=== PATIENT | female | born 1995 | race Caucasian/White ===

== ENCOUNTER → 2022-11-15 09:38 | Outpatient (BNVA) | payer BC, MEDICAID, SELFPAY | PROVIDERS: PCP Internal Medicine; Visit Provider Physician Assistant Surgical ==

== ENCOUNTER 2022-11-16 08:13 | Outpatient (AMB) | payer BC, MEDICAID, SELFPAY ==
--- OUTSIDE RECORDS SUMMARY | 2022-11-16 08:15 | XMS_ITS | Patient Health Record ---
Author Name Unknown Organization [facility], [facility] Address [address], [place] [id number] Care Team Providers Care Merchandise Handler Name Role Phone PEG CENTENO Primary Care Provider Sonya Severino Unavailable [phone] James Yu Unavailable [phone] Migration, Provider Unavailable Unavailable REASON FOR REFERRAL No Information MEDICATIONS Medication SIG (Take, Route, Frequency, Duration) Notes Start Date End Date Status Flovent HFA 110 MCG/ACT INHALE 2 PUFFS TWICE DAILY DIRECTED Inhalation Twice a day for 90 days Active Qvar RediHaler 80 MCG/ACT 1 puff Inhalation Once a day for 90 days Active Sertraline HCl 50 MG TAKE 1 TABLET BY MOUTH ONCE DAILY. for 90 Active ProAir HFA 108 (90 Base) MCG/ACT Inhale 2 puffs every 4 hrs as needed for wheezing Inhalation ProAir HFA 90 mcg/actuation aerosol inhaler *Reorder from [employer] LS15 for eRx and Interaction Alerts* 10/31/2021 Active SOCIAL HISTORY Sex Assigned At : Social History Observation Description Sex Assigned At Unknown Encounters Encounter Location Date Provider Diagnosis [address] [id number] 11/24/2021 James Yu [facility] [address], [place] [id number] 12/06/[address] [id number] 01/04/[address] [id number] 02/02/[address] [id number] 02/14/2022 Sonya [address] [id number] 03/02/2022 Sonya Severino [facility], [place] [address] [place] [place] [id number] 02/18/2022 Provider Migration [place] [address] [place] [place] [id number] 02/19/2022 Provider Migration [place] [address] [place] [place] [id number] 06/06/2022 Sonya Severino [address] [place] [id number] 06/22/2022 PEG CENTENO PLAN OF TREATMENT Next Appt Details Provider Name:Sonya Severino, 02/15/2023 10:45:00 AM, ELSY ALFONSO [place], [id number], Insurance Providers Payer Name Payer Address Payer Phone Subscriber Number Group Number Insured Name Patient Relationship to Insured Coverage Start Date Coverage End Date [employer] [address] [place] [address] [id number] Piyush Nesbitt Unknown - patient's relationship to the insured is other than any listed [place] [employer] [address] [place] [address] [id number] DIONI NESBITT Self - patient is the insured
--- OUTSIDE RECORDS SUMMARY | 2022-11-16 08:16 | XMS_ITS | Continuity of Care Document ---
Author Name Unknown Organization [facility] Address [address] [place] [address]- Care Team Providers Care Emergency Communications Dispatcher Name Role Phone Not on Staff, PCP Primary Care Physician Unavail able [facility]counter [facility] Date(s): 11/29/21 - 12/29/21 [facility] [address] [place] [id number] Allergies, Adverse Reactions, Alerts Substance Reaction Severity Status doxycycline Active amoxicillin Active penicillins Active Ceftin Active Immunizations Given and Recorded Vaccine Date Status Refusal Reason influenza virus vaccine, inactivated 01/22/20 Give n Measles/Mumps/Rubella Virus Vaccine 07/13/18 Given tetanus/diphtheria/pertussis, acel(Tdap) 05/03/18 Recorded tetanus/diphtheria/pertussis, acel(Tdap) 06/15/17 Recorded Medications aspirin 81 mg oral delayed release tablet 162 mg, 2, tablet, By Mouth, Daily at bedtime, # 60 tablet, Refills 4, Tot. Refills 4, Maintenance,03/14/21 15:54:00 EST, Route to Pharmacy Electronically, [facility]/pharmacy #[id number], Partial fill upon patient request if the prescription is for a schedule II... Start Date: 03/14/21 Status: Ordered MetFORMIN (Eqv-Glucophage XR) 500 mg oral tablet, extended release 1 tablet, By Mouth, 2 times a day, # 180 tablet, 0 Refills, [id number], 160, cm, 08/20/21 18:31:00 EDT, Height, 118.18, kg, 01/19/20 17:02:00 EST, Dry Weight Start Date: 08/30/21 Status: Ordered Multivitamins By Mouth, Daily, 0 Refills, Maintenance, 11/26/20 12:59:00 EDT, Partial fill upon patient request if the prescription is for a schedule II opioid drug. Start Date: 11/26/20 Status: Ordered ProAir HFA 90 mcg/inh inhalation aerosol with adapter 2, puffs, Inhalation, 4 times a day, Refills 0, Maintenance, 09/05/16 18:10:39 Start Date: 09/05/16 Status: Ordered Problem List Condition Confirmation Course Effective Dates Status Health St atus Informant Acne Confirmed Active Asthma Confirmed Active Eczema Confirmed Active Gestational diabetes Confirmed Active Migraine Confirmed Active PCOS (polycystic ovarian syndrome) Confirmed Active Severe obesity Confirmed Active Thyroid nodule Confirmed Active Social History Social History Type Response Smoking Status Never (less than 100 in lifetime) entered on: 05/28/18 Sex Patient Care team information Care Team Personnel Name: Darwin WHIPPLE, Ruthie Dhaliwal Position: [facility] Associate Professional Member Role: Primary Care Nurse Address: Address: [address] [place] [id number] Name: Doreen BABIN, Rosanna Position: [facility] RN Member Role: Primary Care Nurse Name: Not on Staff, PCP Position: [facility] Physician (General Medicine) Member Role: PCP Name: Lonny Meraz RN Position: [facility] RN Member Role: Primary Care Nurse Care Team Related Persons Name: GENO ROSENBERG Address: [address] [place] [address] Name: MARIA C CHAVEZ Address: home [address] [place] [address] Name: LEWIS CHAVEZ Address: [place] Address: home [address] [place] [address] Name: SILVINA CHAVEZ Address: [place] Address: home [address] [place] [address]
--- OUTSIDE RECORDS SUMMARY | 2022-11-16 08:16 | XMS_ITS | Continuity of Care Document ---
Author Name [facility] Address [address] [place] [address]- Care Team Providers Care Mesh Worker Name Role Phone Not on Staff, PCP Primary Care Physician Unavail able Encounter [facility] [id number] Date(s): 10/31/20 - [facility] [address] [place] [address]- [place] Allergies, Adverse Reactions, Alerts Substance Reaction Severity Status doxycycline Active amoxicillin Active penicillins Active Ceftin Active Immunizations Given and Recorded Vaccine Date Status Refusal Reason influenza virus vaccine, inactivated 01/22/20 Give n Measles/Mumps/Rubella Virus Vaccine 07/13/18 Given tetanus/diphtheria/pertussis, acel(Tdap) 05/03/18 Recorded tetanus/diphtheria/pertussis, acel(Tdap) 06/15/17 Recorded Medications letrozole 2.5 mg oral tablet 2 tablets, By Mouth, Daily, beginning on the 3rd day of your cycle., # 10 each, 3 Refills, Maintenance, 11/26/20 13:01:00 EDT, Tablet, [facility], Partial fill upon patient request if the prescription is for a schedule II opioid drug.... Start Date: 11/26/20 Status: Ordered MetFORMIN (Eqv-Glucophage XR) 500 mg oral tablet, extended release 1 tablet = 500 mg, By Mouth, 2 times a day, # 60 tablet, 11 Refills, Maintenance, 08/13/20 14:05:00EDT, ER Tablet, [facility]/pharmacy #[id number], 160.02, cm, 08/13/20 13:47:00 EDT, Height, 118.18, kg, 01/18/2017:02:00 EST, Dry Weight Start Date: 08/13/20 Stop Date: 08/08/21 Status: Ordered Ovidrel 250 mcg/0.5 mL subcutaneous solution = 250 mcg, Subcutaneous Injection, Once, Inject when directed, # 2 each, 3 Refills, Soft Stop, 11/30/20 11:02:00 EDT, Solution, [facility], Partial fill upon patient request if the prescription is for a schedule II opioid drug., 160.02, cm... Start Date: 11/30/20 Status: Ordered Multivitamins By Mouth, Daily, 0 Refills, Maintenance, 11/26/20 12:59:00 EDT, Partial fill upon patient request if the prescription is for a schedule II opioid drug. Start Date: 11/26/20 Status: Ordered ProAir HFA 90 mcg/inh inhalation aerosol with adapter 2, puffs, Inhalation, 4 times a day, Refills 0, Maintenance, 09/05/16 18:10:39 Start Date: 09/05/16 Status: Ordered Provera 10 mg oral tablet 10 mg, 1, tablet, By Mouth, Daily, # 10 tablet, Refills 0, Tot. Refills 0, Maintenance, 11/26/20 13:04:00 EDT, Route to Pharmacy Electronically, [facility], Partial fill upon patientrequest if the prescription is for a schedule II op... Start Date: 11/26/20 Status: Ordered Problem List Condition Effective Dates Status Health Status Inform ant Acne(Confirmed) Active Asthma(Confirmed) Active Chlamydia(Confirmed) 2011 Active Eczema(Confirmed) Active Diabetes, gestational(Confirmed) Active History of depression(Confirmed) Active Migraine(Confirmed) Active PCOS (polycystic ovarian syndrome)(Confirmed) Active Prediabetes insulin resisten ce on Metformin(Confirmed) Active hx frequent Strep throat(Confirmed) Active Thyroid nodule(Confirmed) Active Social History Social History Type Response Smoking Status Never (less than 100 in lifetime) entered on: 05/28/18 Sex Female
--- OUTSIDE RECORDS SUMMARY | 2022-11-16 08:16 | XMS_ITS | Continuity of Care Document ---
Author Name Unknown Organization [facility] Address [address] [place] [address]- Care Team Providers Care Weight Loss Centre Manager Name Role Phone Vikram CHOI, Lonny Osborne Primary Care Physician Encounter [facility] Date(s): 03/14/21 - 04/[facility] [address] [place] [id number] Attending Physician: AdmJennifer saldivar Admitting Physician: Admtr, Jennifer Referring Physician: Admtr, Ar8 Allergies, Adverse Reactions, Alerts Substance Reaction Severity [...] Maintenance,03/14/21 15:54:00 EST, Route to Pharmacy Electronically, [facility]/pharmacy #[id number], Partial fill upon patient request if the prescription is for a schedule II... Start Date: 03/14/21 Status: Ordered MetFORMIN (Eqv-Glucophage XR) 500 mg oral tablet, extended release 1 tablet = 500 mg, By Mouth, 2 times a day, # 60 tablet, 11 Refills, Maintenance, 08/13/20 14:05:00EDT, ER Tablet, [facility]/pharmacy #[id number], 160.02, cm, 08/13/20 13:47:00 EDT, Height, 118.18, kg, 01/18/2017:02:00 EST, Dry Weight Start Date: 08/13/20 Stop Date: 08/08/21 Status: Ordered Multivitamins By Mouth, Daily, 0 Refills, Maintenance, 11/26/20 12:59:00 EDT, Partial fill upon patient request if the prescription is for a schedule II opioid drug. Start Date: 11/26/20 Status: Ordered ProAir HFA 90 mcg/inh inhalation aerosol with adapter 2, puffs, Inhalation, 4 times a day, Refills 0, Maintenance, 09/05/16 18:10:39 Start Date: 09/05/16 Status: Ordered Problem List Condition Effective Dates Status Health Status Inform ant Acne(Confirmed) Active Asthma(Confirmed) Active Eczema(Confirmed) Active Migraine(Confirmed) Active PCOS (polycystic ovarian syndrome)(Confirmed) Active Thyroid nodule(Confirmed) Active Social History Social History Type Response Smoking Status Never (less than 100 in lifetime) entered on: 05/28/18 Sex Female
--- OUTSIDE RECORDS SUMMARY | 2022-11-16 08:16 | XMS_ITS | Continuity of Care Document ---
Author Name Unknown Organization [facility] Address [address] [place] [address]- Care Team Providers Care B2B Sales Executive Name Role Phone Vikram CHOI, Lonny Osborne Primary Care Physician [phone] Encounter [facility] Date(s): 06/29/20 - 07/29/20 [facility] [address] [place], [place] [address] Allergies, Adverse Reactions, Alerts Substance Reaction Severity Status doxycycline Active amoxicillin Active penicillins Active Ceftin Active Immunizations Given and Recorded Vaccine Date Status Refusal Reason influenza virus vaccine, inactivated 01/22/20 Give n Measles/Mumps/Rubella Virus Vaccine 07/13/18 Given Medications MetFORMIN (Eqv-Glucophage XR) 500 mg oral tablet, extended release 1 tablet = 500 mg, By Mouth, Daily, 0 Refills, Maintenance, 01/19/20 3:46:00 EST, Partial fill uponpatient request if the prescription is for a schedule II opioid drug. Start Date: 01/19/20 Status: Ordered ProAir HFA 90 mcg/inh inhalation aerosol with adapter 2, puffs, Inhalation, 4 times a day, Refills 0, Maintenance, 09/05/16 18:10:39 Start Date: 09/05/16 Status: Ordered Zithromax 500 mg oral tablet 2 tablet = 1,000 mg, By Mouth, Once, # 2 tablet, 0 Refills, Soft Stop, 07/26/20 12:23:00 EDT, Tablet, [facility]/pharmacy #[id number], Partial fill upon patient request if the prescription is for a schedule II opioid drug., 160.02, cm, 01/23/20 9:43:00 EST, Height... Start Date: 07/26/20 Status: Ordered Problem List Condition Effective Dates [...]
--- OUTSIDE RECORDS SUMMARY | 2022-11-16 08:16 | XMS_ITS | Continuity of Care Document ---
Author Name Unknown Organization [facility] Address Unknown Care Team Providers Care Manufacturing Design Engineer Name Role Phone Not on Staff, PCP Primary Care Physician Unavail able [place] [facility] [place] 10[place]13[place]20 [place] 11/12/20 [facility] Allergies, Adverse Reactions, Alerts Substance Reaction Severity Status doxycycline Active amoxicillin Active penicillins Active Ceftin Active Immunizations Given and Recorded Vaccine Date Status Refusal Reason influenza virus vaccine, inactivated 01/22/20 Give n Measles/Mumps/Rubella Virus Vaccine 07/13/18 Given tetanus/diphtheria/pertussis, acel(Tdap) 05/03/18 Recorded tetanus/diphtheria/pertussis, acel(Tdap) 06/15/17 Recorded Medications dexamethasone 1 mg oral tablet See Instructions, 1 tablet By Mouth at 11 PM and go for blood test next morning at 8 AM, # 1 each, 0 Refills, Acute 08/14/21 14:07:00 EDT, 08/13/20 14:06:00 EDT, [id number], 160.02, cm, 08/13/20 13:47:00 EDT, Height, 118.18, kg, 01/19/20 17:02... Start Date: 08/13/20 Stop Date: 08/14/21 Status: Ordered MetFORMIN (Eqv-Glucophage XR) 500 mg oral tablet, extended release 1 tablet = 500 mg, By Mouth, 2 times a day, # 60 tablet, 11 Refills, Maintenance, 08/13/20 14:05:00EDT, ER Tablet, [id number], 160.02, cm, 08/13/20 13:47:00 EDT, Height, 118.18, kg, 01/18/2017:02:00 EST, Dry Weight Start Date: 08/13/20 Stop Date: 08/08/21 Status: Ordered ProAir HFA 90 mcg/inh inhalation aerosol with adapter 2, puffs, Inhalation, 4 times a day, Refills 0, Maintenance, 09/05/16 18:10:39 Start Date: 09/05/16 Status: Ordered Zithromax 500 mg oral tablet 2 tablet = 1,000 mg, By Mouth, Once, # 2 tablet, 0 Refills, Soft Stop, 07/26/20 12:23:00 EDT, Tablet, [id number], Partial fill upon patient request if the [...]
--- OUTSIDE RECORDS SUMMARY | 2022-11-16 08:16 | XMS_ITS | Continuity of Care Document ---
Author Name Unknown Organization [facility] Address [address] [place] [address]- Care Team Providers Care Apparel Sales Leader Name Role Phone Not on Staff, PCP Primary Care Physician Unavail able [place] [facility] Date(s): 06/08/20 - 10/28/20 [facility] [address] [place] [address]- Attending Physician: Gael Bruce NP Allergies, Adverse Reactions, Alerts Substance Reaction Severity [...] Acute 08/14/21 14:07:00 EDT, 08/13/20 14:06:00 EDT, [facility]/pharmacy #[id number], 160.02, cm, 08/13/20 13:47:00 EDT, Height, [...] Refills, Soft Stop, 07/26/20 12:23:00 EDT, Tablet, [facility]/pharmacy #[id number], Partial fill upon patient request if the [...]
--- OUTSIDE RECORDS SUMMARY | 2022-11-16 08:16 | XMS_ITS | Continuity of Care Document ---
Author Name Unknown Organization [facility] Address [address] [place] [address]- Care Team Providers Care Software Design Analyst Name Role Phone Not on Staff, PCP Primary Care Physician Unavail able Encounter [facility] Date(s): 08/08/21 - 09/07/21 [facility] [address] [place] [id number] Allergies, Adverse Reactions, Alerts Substance Reaction [...] Maintenance,03/14/21 15:54:00 EST, Route to Pharmacy Electronically, [facility]/pharmacy #[id number], Partial fill upon patient request if the prescription is for a schedule II... Start Date: 03/14/21 Status: Ordered MetFORMIN (Eqv-Glucophage XR) 500 mg oral tablet, extended release 1 tablet, By Mouth, 2 times a day, # 180 tablet, 0 Refills, [facility], 160, cm, 08/20/21 18:31:00 EDT, Height, 118.18, [...] ant Acne(Confirmed) Active Asthma(Confirmed) Active Eczema(Confirmed) Active Gestational diabetes(Confirmed) Active Migraine(Confirmed) Active PCOS (polycystic ovarian syndrome)(Confirmed) Active Severe obesity(Confirmed) Active Thyroid nodule(Confirmed) Active Social History Social History Type Response Smoking Status Never (less than 100 in lifetime) entered on: 05/28/18 Sex Female
--- OUTSIDE RECORDS SUMMARY | 2022-11-16 08:16 | XMS_ITS | Continuity of Care Document ---
Author Name Unknown Organization [facility] Address [address] [place] [address]- Care Team Providers Care Bus Aide Name Role Phone Not on Staff, PCP Primary Care Physician Unavail able Encounter [facility] Date(s): 08/22/21 - 09/21/21 [facility] [address] [place] [id number] Allergies, Adverse Reactions, Alerts Substance Reaction Severity [...] Maintenance,03/14/21 15:54:00 EST, Route to Pharmacy Electronically, [facility]/pharmacy #[id number], Partial fill upon patient request if the prescription is for a schedule II... Start Date: 03/14/21 Status: Ordered MetFORMIN (Eqv-Glucophage XR) 500 mg oral tablet, extended release 1 tablet, By Mouth, 2 times a day, # 180 tablet, 0 Refills, [id number], 160, cm, 08/20/21 18:31:00 EDT, Height, 118.18, [...]
--- OUTSIDE RECORDS SUMMARY | 2022-11-16 08:16 | XMS_ITS | Continuity of Care Document ---
Author Name Unknown Organization [facility] Address Unknown Care Team Providers Care Anesthesia Associate Name Role Phone Vikram CHOI, Lonny Osborne Primary Care Physician Encounter [facility] Date(s): 12/28/20 - 01/27/21 [facility] Allergies, Adverse Reactions, Alerts Substance Reaction Severity Status doxycycline Active amoxicillin Active penicillins Active Ceftin Active Immunizations Given and Recorded Vaccine Date Status Refusal Reason influenza virus vaccine, inactivated 01/22/20 Give n Measles/Mumps/Rubella Virus Vaccine 07/13/18 Given tetanus/diphtheria/pertussis, acel(Tdap) 05/03/18 Recorded tetanus/diphtheria/pertussis, acel(Tdap) 06/15/17 Recorded Medications 27 gauge x 0.5 inch needle 27 gauge x 0.5 inch needle, See Instructions, # 2 each, Refills 3, Tot. Refills 3, Maintenance, Useto administer HCG subcutaneously once, 12/01/20 9:41:00 EDT, Supply, 160.02, cm, 11/26/20 12:57:00 EDT, Height, 118.18, kg, 01/19/20 17:02:00 EST, Dry... Start Date: 12/01/20 Status: Ordered 3 cc 22gauge x 1.5 inch syringe 3 cc 22gauge x 1.5 inch syringe, See Instructions, # 2 each, Refills 3, Tot. Refills 3, Maintenance, Use to mix HCG, 12/01/20 9:41:00 EDT, Supply, 160.02, cm, 11/26/20 12:57:00 EDT, Height, 118.18, kg, 01/19/20 17:02:00 EST, Dry Weight Start Date: 12/01/20 Status: Ordered letrozole 2.5 mg oral tablet 2 tablets, By Mouth, Daily, beginning on the 3rd day of your cycle., # 10 each, 3 Refills, Maintenance, 11/26/20 13:01:00 EDT, Tablet, [facility], Partial fill upon patient request if the prescription is for a schedule II opioid drug.... Start Date: 11/26/20 Status: Ordered MetFORMIN (Eqv-Glucophage XR) 500 mg oral tablet, extended release 1 tablet = 500 mg, By Mouth, 2 times a day, # 60 tablet, 11 Refills, Maintenance, 08/13/20 14:05:00EDT, ER Tablet, [facility]/pharmacy #[id number], 160.02, cm, 08/13/20 13:47:00 EDT, Height, 118.18, kg, 01/18/2017:02:00 EST, Dry Weight Start Date: 08/13/20 Stop Date: 08/08/21 Status: Ordered Ovidrel 250 mcg/0.5 mL subcutaneous solution = 250 mcg, Subcutaneous Injection, Once, Inject when directed, # 2 each, 3 Refills, Soft Stop, 11/30/20 11:02:00 EDT, Solution, [facility], Partial fill upon patient request if the prescription is for a schedule II opioid drug., 160.02, cm... Start Date: 11/30/20 Status: Ordered Pregnyl 98630 u injectable powder for injection See Instructions, 10,000 units subcutaneously Once, # 1 kit, 3 Refills, Maintenance, 12/01/20 9:40:00 EDT, Powder, [facility], Partial fill upon patient request if the prescription is for a schedule II opioid drug., 160.02, cm, ... Start Date: 12/01/20 Status: Ordered Multivitamins By Mouth, Daily, 0 [...] 11/26/20 13:04:00 EDT, Route to Pharmacy Electronically, [facility], Partial fill upon patientrequest if [...]
--- OUTSIDE RECORDS SUMMARY | 2022-11-16 08:16 | XMS_ITS | Continuity of Care Document ---
Author Name Unknown Organization [facility] ter Address [address] [place] [address]- Care Team Providers Care Powder Core Tester Name Role Phone Lebron Corine Hyde DO Primary Care Ruiz martinez Encounter [facility] Date(s): 01/19/20 - 01/23/[address] [address] Discharge Disposition: A-D/C Home Attending Physician: Rafi Swift MD Admitting Physician: Ezequiel Rdz DO Referring Physician: Not on Staff, Referring MD Allergies, Adverse Reactions, Alerts Substance Reaction Severity Status doxycycline Active amoxicillin Active penicillins Active Ceftin Active Immunizations Given and Recorded Vaccine Date Status Refusal Reason influenza virus vaccine, inactivated 01/22/20 Give n Measles/Mumps/Rubella Virus Vaccine 07/13/18 Given Medications dexamethasone 6 mg oral tablet 1 tablet = 6 mg, By Mouth, Daily, for 4 days, # 4 tablet, 0 Refills, Acute 01/27/20 9:56:00 EST, 01/23/20 9:56:00 EST, Tablet, [facility], Partial fill upon patient request if the prescription is for a schedule II opioid drug., 160.02, c... Start Date: 01/23/20 Stop Date: 01/27/20 Status: Ordered MetFORMIN (Eqv-Glucophage XR) 500 mg [...] frequent Strep throat(Confirmed) Active Thyroid nodule(Confirmed) Active Results Radiology Reports * Exam Date Time Procedure Performing Provider Status 01/19/20 3:39 AM Chest Portable Meri Saba; Aut h (Verified) Notes: (Chest Portable) Reason For Exam: Shortness of Breath RESULT: Chest Portable Examination: Portable chest performed on 01/19/2020. History: COVID positive. Nausea and vomiting. Shortness of breath. Findings: A frontal view of the chest is compared to a prior study dated 01/31/2011. The cardiac and mediastinal silhouettes are within normal limits. Low lung volumes are present. There are patchy bilateral predominantly perihilar and lower lobe groundglass opacities. No pleural effusions are seen. The osseous structures are intact. IMPRESSION: Low lung volumes with groundglass opacities bilaterally, consistent with the given diagnosis of covid pneumonia. WSN: [id number] Ordering Physician: Gian Brock Dictated By: Neena Au MD Dictated Date/Time: 01/19/20 8:36 am Reviewed By: Neena Au MD Signed By: Neena Au MD Signed Date/Time: 01/19/20 8:36 am Transcribed By: ELIAS Transcribed Date/Time: 01/19/20 8:35 am Vital Signs Most recent to oldest [Reference Range]: 1 2 3 Height 160.02 cm (01/23/20 9:43 AM) 160.02 cm (01/21/20 3:12 PM) 160.02 cm (01/21/20 11:25 AM) Weight 118.18 kg (01/19/20 10:42 AM) Oxygen Saturation [94-100 %] 94 % (01/23/20 9:43 AM) 94 % (01/23/20 4:00 AM) 99 % (01/23/20 3:00 AM) Pulse Rate [55-90 bpm] 93 bpm *H* (01/23/20 9:43 AM) 116 bpm *H* (01/19/20 4:00 PM) 103 bpm *H* (01/19/20 10:42 AM) Body Mass Index [18.5-24.99] 46.15 *>HHI* (01/19/20 10:42 AM) Blood Pressure [90-138/55-84 mm Hg] 110/70mm Hg (01/23/20 9:43 AM) 106/63mm Hg (01/23/20 4:00 AM) 106/63mm Hg (01/23/20 3:00 AM) Respiratory Rate [16-30 br/min] 20 br/min (01/23/20 9:43 AM) 16 br/min (01/22/20 11:00 PM) 22 br/min (01/22/20 7:00 PM) Temperature [96.8-100.4 DegF] 98.4 DegF (01/23/20 9:00 AM) 98.0 DegF (01/23/20 3:00 AM) 98.2 DegF (01/22/20 11:00 PM) Liters per Minute 2 L/min (01/21/20 4:00 AM) 2 L/min (01/21/20 12:00 AM) 2 L/min (01/20/20 6:00 PM) Mode of Delivery (Oxygen) Room air (01/23/20 9:43 AM) Room air (01/22/20 1:00 PM) Room air (01/22/20 4:00 AM) Blood pressure sites Arm, left (01/23/20 9:43 AM) Arm, left (01/19/20 10:42 AM) Arm, left (01/19/20 6:21 AM) Temperature Route Oral (01/23/20 9:00 AM) Oral (01/23/20 3:00 AM) Oral (01/22/20 11:00 PM) Dry Weight 118.18 kg (01/19/20 10:42 AM) Social History Social History Type Response Smoking Status Never (less than 100 in lifetime) entered on: 05/28/18 Sex
--- OUTSIDE RECORDS SUMMARY | 2022-11-16 08:16 | XMS_ITS | Continuity of Care Document ---
Author Name Unknown Organization [facility] Medicine Address [address] [facility], 4t [address] [place] [address]- Care Team Providers Care Strip Cutter Name Role Phone Vikram CHOI, Lonny Osborne Primary Care Physician Encounter [facility] Date(s): 07/22/20 - 08/21/20 [facility] [address] [facility], 4th [address] [place] [id number] Allergies, Adverse Reactions, Alerts Substance Reaction Severity Status doxycycline Active amoxicillin Active penicillins Active Ceftin Active Immunizations Given and Recorded Vaccine Date Status Refusal Reason influenza virus vaccine, inactivated 01/22/20 Give n Measles/Mumps/Rubella Virus Vaccine 07/13/18 Given Medications dexamethasone 1 mg oral tablet See [...] Refills, Soft Stop, 07/26/20 12:23:00 EDT, Tablet, [facility]/pharmacy #[id number], Partial fill upon patient request if the [...]
--- OUTSIDE RECORDS SUMMARY | 2022-11-16 08:16 | XMS_ITS | Continuity of Care Document ---
Author Name Unknown Organization [facility] ter Address [address] [place] [address]- Care Team Providers Care Pluck Trimmer Name Role Phone Jose Manuel WHIPPLE, Cindi Kang Primary Care Physician [place] [facility] [place] [facility] [place] 08/16/22 - 09/25/[address] [address] Attending Physician: Denise Armando MD Referring Physician: Denise Armando MD Allergies, Adverse Reactions, Alerts Substance Reaction Severity Status doxycycline Active amoxicillin Active penicillins Active Ceftin Active Immunizations Given and Recorded Vaccine Date Status Refusal Reason influenza virus vaccine, inactivated 01/22/20 Give n Measles/Mumps/Rubella Virus Vaccine 07/13/18 Given tetanus/diphtheria/pertussis, acel(Tdap) 05/03/18 Recorded tetanus/diphtheria/pertussis, acel(Tdap) 06/15/17 Recorded Medications MetFORMIN (Eqv-Glucophage XR) 500 mg oral tablet, extended release 1 tablet, By Mouth, 2 times a day, # 180 tablet, 0 Refills, [id number], 160, cm, 08/20/21 18:31:00 EDT, Height, 118.18, [...] 09/05/16 18:10:39 Start Date: 09/05/16 Status: Ordered sertraline 50 mg oral tablet 1 tablet = 50 mg, By Mouth, Daily, 0 Refills, Maintenance, 08/14/22 12:34:00 EDT, Partial fill uponpatient request if the prescription is for a schedule II opioid drug. Start Date: 08/14/22 Status: Ordered Problem List Condition Confirmation Course [...] Personnel Name: Darwin WHIPPLE, Ruthie Dhaliwal Position: [facility] Associate Professional Member Role: Primary Care Nurse Address: Address: [address] [place] [address]- Name: Jose Manuel WHIPPLE, Cindi Kang Position: [facility] Outreach Member Role: PCP Address: Address: [address] [place] [address]- Name: Rosanna Logan RN Position: [facility] RN Member Role: Primary Care Nurse Name: Lonny Meraz RN Position: [facility] RN Member Role: Primary Care Nurse Care Team Related Persons Name: GENO ROSENBERG Address: home [address] [place] [id number] Name: MARIA C CHAVEZ Address: home [address], [place] Name: YRIS CHAVEZ [facility] Address: home [address] [place] Name: LEWIS CHAVEZ Address: [employer] Address: home [address] [place] Name: SILVINA CHAVEZ Address: [employer] Address: home [address]
--- OUTSIDE RECORDS SUMMARY | 2022-11-16 08:16 | XMS_ITS | Continuity of Care Document ---
Author Name Unknown Organization [facility] Address [address] [place] [address]- Care Team Providers Care Seasonal Driver Name Role Phone Vikram CHOI, Lonny Osborne Primary Care Physician [phone] Encounter [facility] Date(s): 12/31/20 - 01/30/21 [facility] [address] [place] [address]- Attending Physician: Admtr, Jennifer Admitting Physician: Admtr, Ar8 Referring Physician: Admtr, Ar8 Allergies, Adverse Reactions, [...] 3 Refills, Maintenance, 11/26/20 13:01:00 EDT, Tablet, [facility], Partial fill upon patient request if the prescription is for a schedule II opioid drug.... Start Date: 11/26/20 Status: Ordered MetFORMIN (Eqv-Glucophage XR) 500 mg oral tablet, extended release 1 tablet = 500 mg, By Mouth, 2 times a day, # 60 tablet, 11 Refills, Maintenance, 08/13/20 14:05:00EDT, ER Tablet, [facility]/pharmacy #[id number], 160.02, cm, 08/13/20 13:47:00 EDT, Height, 118.18, kg, 01/18/2017:02:00 EST, Dry Weight Start Date: 08/13/20 Stop Date: 08/08/21 Status: Ordered Ovidrel 250 mcg/0.5 mL subcutaneous solution = 250 mcg, Subcutaneous Injection, Once, Inject when directed, # 2 each, 3 Refills, Soft Stop, 11/30/20 11:02:00 EDT, Solution, [facility], Partial fill upon patient request if the prescription is for a schedule II opioid drug., 160.02, cm... Start Date: 11/30/20 Status: Ordered Pregnyl 64961 u injectable powder for injection See Instructions, 10,000 units subcutaneously Once, # 1 kit, 3 Refills, Maintenance, 12/01/20 9:40:00 EDT, Powder, [facility], Partial fill upon patient request [...] 11/26/20 13:04:00 EDT, Route to Pharmacy Electronically, [facility], Partial fill upon patientrequest if [...]
--- OUTSIDE RECORDS SUMMARY | 2022-11-16 08:16 | XMS_ITS | Continuity of Care Document ---
Author Name Unknown Organization [facility] Address [address] [place] [address]- Care Team Providers Care Yarn Sorter Name Role Phone Not on Staff, PCP Primary Care Physician Unavail able Encounter [facility] Date(s): 09/22/21 - 10/22/[facility] [address] [place] [id number] Attending Physician: Jennifer Amezcua Admitting Physician: AdmJennifer saldivar Referring Physician: Admtr Ar8 Allergies, Adverse Reactions, Alerts Substance Reaction Severity Status doxycycline Active amoxicillin Active Ceftin Active penicillins Active Immunizations Given and Recorded Vaccine Date Status Refusal Reason influenza virus vaccine, inactivated 01/22/20 Give n Measles/Mumps/Rubella Virus Vaccine 07/13/18 Given tetanus/diphtheria/pertussis, acel(Tdap) 05/03/18 Recorded tetanus/diphtheria/pertussis, acel(Tdap) 06/15/17 Recorded Medications aspirin 81 mg oral delayed release tablet 162 mg, 2, tablet, By Mouth, Daily at bedtime, # 60 tablet, Refills 4, Tot. Refills 4, Maintenance,03/14/21 15:54:00 EST, Route to Pharmacy Electronically, [facility]/pharmacy #[id number], Partial fill upon patient request if the prescription is for a schedule II... Start Date: 03/14/21 Status: Ordered MetFORMIN (Eqv-Glucophage XR) 500 mg oral tablet, extended release 1 tablet, By Mouth, 2 times a day, # 180 tablet, 0 Refills, [facility] [id number], 160, cm, 08/20/21 18:31:00 EDT, Height, 118.18, [...] 100 in lifetime) entered on: 05/28/18 Sex Care Team Personnel Name: Not on Staff, PCP
--- OUTSIDE RECORDS SUMMARY | 2022-11-16 08:16 | XMS_ITS | Continuity of Care Document ---
Author Name Unknown Organization [facility] Address Unknown Care Team Providers Care Exchange Mechanic Name Role Phone Not on Staff, PCP Primary Care Physician Unavail able [place] [facility] Date(s): 10/21/20 - 11/20/20 [facility] Allergies, Adverse Reactions, Alerts [...] Soft Stop, 07/26/20 12:23:00 EDT, Tablet, [id number], Partial fill upon patient request if the [...]
--- OUTSIDE RECORDS SUMMARY | 2022-11-16 08:16 | XMS_ITS | Continuity of Care Document ---
Author Name Unknown Organization [facility] Address Unknown Care Team Providers Care Cyber Incident Responder Name Role Phone Not on Staff, PCP Primary Care Physician Unavail able Encounter [facility] Date(s): 12/07/20 - 12/14/20 [facility] Attending Physician: Not on Staff, Attending MD Referring Physician: Sosa Rivas MD Allergies, Adverse Reactions, Alerts Substance Reaction [...] 3 Refills, Maintenance, 11/26/20 13:01:00 EDT, Tablet, [facility], Partial fill upon patient request if the prescription is for a schedule II opioid drug.... Start Date: 11/26/20 Status: Ordered MetFORMIN (Eqv-Glucophage XR) 500 mg oral tablet, extended release 1 tablet = 500 mg, By Mouth, 2 times a day, # 60 tablet, 11 Refills, Maintenance, 08/13/20 14:05:00EDT, ER Tablet, [facility]/pharmacy #[id number], 160.02, cm, 08/13/20 13:47:00 EDT, Height, 118.18, kg, 01/18/2017:02:00 EST, Dry Weight Start Date: 08/13/20 Stop Date: 08/08/21 Status: Ordered Ovidrel 250 mcg/0.5 mL subcutaneous solution = 250 mcg, Subcutaneous Injection, Once, Inject when directed, # 2 each, 3 Refills, Soft Stop, 11/30/20 11:02:00 EDT, Solution, [facility], Partial fill upon patient request if the prescription is for a schedule II opioid drug., 160.02, cm... Start Date: 11/30/20 Status: Ordered Pregnyl 55964 u injectable powder for injection See Instructions, 10,000 units subcutaneously Once, # 1 kit, 3 Refills, Maintenance, 12/01/20 9:40:00 EDT, Powder, [facility], Partial fill upon patient [...] 11/26/20 13:04:00 EDT, Route to Pharmacy Electronically, [facility], Partial fill upon patientrequest [...]
--- OUTSIDE RECORDS SUMMARY | 2022-11-16 08:16 | XMS_ITS | Continuity of Care Document ---
Author Name Unknown Organization [facility] Address [address] [facility], 4[address] [place] [address]- Care Team Providers Care Apple Turner Name Role Phone Vikram CHOI, Lonny Osborne Primary Care Physician [phone] Encounter [facility] Date(s): 07/19/20 - 08/18/20 [facility] [address] [facility], 4th [address] [place] [id number] Allergies, Adverse Reactions, Alerts [...] Soft Stop, 07/26/20 12:23:00 EDT, Tablet, [facility]/pharmacy #[id number], Partial fill upon patient request if the [...]
--- OUTSIDE RECORDS SUMMARY | 2022-11-16 08:16 | XMS_ITS | Continuity of Care Document ---
Author Name Unknown Organization [facility] Address Unknown Care Team Providers Care President [employer] Name Role Phone Not on Staff, PCP Primary Care Physician Unavail able Encounter [facility] Date(s): 01/11/21 - 01/18/21 [facility] Attending Physician: Not on [...] 3 Refills, Maintenance, 11/26/20 13:01:00 EDT, Tablet, [facility], Partial fill upon patient request if the prescription is for a schedule II opioid drug.... Start Date: 11/26/20 Status: Ordered MetFORMIN (Eqv-Glucophage XR) 500 mg oral tablet, extended release 1 tablet = 500 mg, By Mouth, 2 times a day, # 60 tablet, 11 Refills, Maintenance, 08/13/20 14:05:00EDT, ER Tablet, [facility]/pharmacy #[id number], 160.02, cm, 08/13/20 13:47:00 EDT, Height, 118.18, kg, 01/18/2017:02:00 EST, Dry Weight Start Date: 08/13/20 Stop Date: 08/08/21 Status: Ordered Ovidrel 250 mcg/0.5 mL subcutaneous solution = 250 mcg, Subcutaneous Injection, Once, Inject when directed, # 2 each, 3 Refills, Soft Stop, 11/30/20 11:02:00 EDT, Solution, [facility], Partial fill upon patient request if the prescription is for a schedule II opioid drug., 160.02, cm... Start Date: 11/30/20 Status: Ordered Pregnyl 54486 u injectable powder for injection See Instructions, 10,000 units subcutaneously Once, # 1 kit, 3 Refills, Maintenance, 12/01/20 9:40:00 EDT, Powder, [facility], Partial fill upon patient [...] 11/26/20 13:04:00 EDT, Route to Pharmacy Electronically, [facility], Partial fill upon patientrequest [...]
--- OUTSIDE RECORDS SUMMARY | 2022-11-16 08:16 | XMS_ITS | Continuity of Care Document ---
Author Name Unknown Organization [facility] Address [address] [place] [address]- Care Team Providers Care Set Up Mechanic Coil Winding Machines Name Role Phone Vikram CHOI, Lonny Osborne Primary Care Physician [phone] Encounter [facility] Date(s): 06/24/21 - 07/24/21 [facility] [address] [place] [id number] Allergies, Adverse Reactions, Alerts Substance [...] Maintenance,03/14/21 15:54:00 EST, Route to Pharmacy Electronically, [facility]/pharmacy #[id number], Partial fill upon patient request if the prescription is for a schedule II... Start Date: 03/14/21 Status: Ordered MetFORMIN (Eqv-Glucophage XR) 500 mg oral tablet, extended release 1 tablet = 500 mg, By Mouth, 2 times a day, # 60 tablet, 11 Refills, Maintenance, 08/13/20 14:05:00EDT, ER Tablet, [facility]/pharmacy #[id number], 160.02, cm, 08/13/20 13:47:00 EDT, Height, [...]
--- OUTSIDE RECORDS SUMMARY | 2022-11-16 08:16 | XMS_ITS | Continuity of Care Document ---
Author Name Unknown Organization [facility] Address [address] [place] [address]- Care Team Providers Care Primary Care Coordinator Name Role Phone Vikram CHOI, Lonny Osborne Primary Care Physician [phone] Encounter [facility] [place] Date(s): 07/12/21 - 08/11/21 [facility] [address] [place] [id number] Allergies, Adverse Reactions, Alerts Substance Reaction [...] Maintenance,03/14/21 15:54:00 EST, Route to Pharmacy Electronically, [facility]/pharmacy #[id number], Partial fill upon patient request if the prescription is for a schedule II... Start Date: 03/14/21 Status: Ordered MetFORMIN (Eqv-Glucophage XR) 500 mg oral tablet, extended release 1 tablet = 500 mg, By Mouth, 2 times a day, # 60 tablet, 11 Refills, Maintenance, 08/13/20 14:05:00EDT, ER Tablet, [facility]/pharmacy #[id number], 160.02, cm, 08/13/20 13:47:00 EDT, Height, 118.18, kg, 01/18/2017:02:00 EST, Dry Weight Start Date: 08/13/20 Stop Date: 08/08/21 Status: Ordered metFORMIN 500 mg oral tablet See Instructions, One tablet by mouth with breakfast, one tablet with lunch, and one tablet with afternoon snack, # 90 tablet, 1 Refills, Maintenance, 07/25/21 9:45:00 EDT, Partial fill upon patient request if the prescription is for a schedule II opi... Start Date: 07/25/21 Status: Ordered Multivitamins By Mouth, Daily, 0 [...]
--- OUTSIDE RECORDS SUMMARY | 2022-11-16 08:16 | XMS_ITS | Continuity of Care Document ---
Author Name Unknown Organization [facility] Address [address] [place] [address]- Care Team Providers Care Drawer In Dobby Loom Name Role Phone Vikram CHOI, Lonny Osborne Primary Care Physician [phone] [facility] Date(s): 07/18/21 - 08/17/21 [facility] [address] [place] [id number] Attending Physician: Jennifer Amezcua Admitting Physician: Admtr, Jennifer Referring Physician: Admtr, [...] Maintenance,03/14/21 15:54:00 EST, Route to Pharmacy Electronically, [facility]/pharmacy #[id number], Partial fill upon patient request if the prescription is for a schedule II... Start Date: 03/14/21 Status: Ordered MetFORMIN (Eqv-Glucophage XR) 500 mg oral tablet, extended release 1 tablet = 500 mg, By Mouth, 2 times a day, # 60 tablet, 11 Refills, Maintenance, 08/13/20 14:05:00EDT, ER Tablet, [facility]/pharmacy #[id number], 160.02, cm, 08/13/20 13:47:00 EDT, [...]
--- OUTSIDE RECORDS SUMMARY | 2022-11-16 08:16 | XMS_ITS | Continuity of Care Document ---
Author Name Unknown Organization [facility] ter Address [address] [place] [address]- Care Team Providers Care Maid Supervisor Name Role Phone Vikram CHOI, Lonny Osborne Primary Care Physician [facility] Date(s): 08/01/21 - 08/31/[address] [address] Allergies, Adverse Reactions, Alerts Substance [...] Maintenance,03/14/21 15:54:00 EST, Route to Pharmacy Electronically, [facility]/pharmacy #[id number], Partial fill upon patient request if the prescription is for a schedule II... Start Date: 03/14/21 Status: Ordered MetFORMIN (Eqv-Glucophage XR) 500 mg oral tablet, extended release 1 tablet, By Mouth, 2 times a day, # 180 tablet, 0 Refills, [facility], 160, cm, 08/20/21 18:31:00 EDT, Height, 118.18, [...] Asthma(Confirmed) Active Eczema(Confirmed) Active Gestational diabetes(Confirmed) Active Gestational diabetes mellitu s, class A>2<(Confirmed) 1 08/20/21 Active H/O: depression(Confirmed) 2 08/20/21 Active Migraine(Confirmed) Active PCOS (polycystic ovarian syndrome)(Confirmed) Active Thyroid nodule(Confirmed) Active 1Problem added by Discern Expert 2Problem added by Discern Expert Social History Social History Type Response Smoking Status Never (less than 100 in lifetime) entered on: 05/28/18 Sex Female
--- OUTSIDE RECORDS SUMMARY | 2022-11-16 08:16 | XMS_ITS | Continuity of Care Document ---
Author Name Unknown Organization [facility] Address [address] [place] [address]- Care Team Providers Care Compensation Specialist Name Role Phone Not on Staff, PCP Primary Care Physician Unavail able [facility]counter [facility] Date(s): 10/30/20 - 11/29/20 [facility] [address] [place] [address]- Allergies, Adverse Reactions, Alerts Substance Reaction Severity [...] 3 Refills, Maintenance, 11/26/20 13:01:00 EDT, Tablet, [facility], Partial fill upon patient request if the prescription is for a schedule II opioid drug.... Start Date: 11/26/20 Status: Ordered MetFORMIN (Eqv-Glucophage XR) 500 mg oral tablet, extended release 1 tablet = 500 mg, By Mouth, 2 times a day, # 60 tablet, 11 Refills, Maintenance, 08/13/20 14:05:00EDT, ER Tablet, [facility]/pharmacy #[id number], 160.02, cm, 08/13/20 13:47:00 EDT, Height, 118.18, kg, 01/18/2017:02:00 EST, Dry Weight Start Date: 08/13/20 Stop Date: 08/08/21 Status: Ordered Ovidrel 250 mcg/0.5 mL subcutaneous solution = 250 mcg, Subcutaneous Injection, Once, Inject once per cycle when directed, # 2 each, 3 Refills, Soft Stop, 11/26/20 13:02:00 EDT, Solution, [facility], Partial fill upon patient request if the prescription is for a schedule II opio... Start Date: 11/26/20 Status: Ordered Multivitamins By Mouth, Daily, 0 [...] 11/26/20 13:04:00 EDT, Route to Pharmacy Electronically, [facility], Partial fill upon patientrequest [...]
--- OUTSIDE RECORDS SUMMARY | 2022-11-16 08:16 | XMS_ITS | Continuity of Care Document ---
Author Name Unknown Organization [facility] Address [address] [place] [address]- Care Team Providers Care Veterinarian Helper Name Role Phone Vikram CHOI, Lonny Osborne Primary Care Physician [place] [facility] [place](s): 04/06/21 - 05/06/21 [facility] [address] [place] [id number] Allergies, Adverse Reactions, Alerts Substance [...] Maintenance,03/14/21 15:54:00 EST, Route to Pharmacy Electronically, [facility]/pharmacy #[id number], Partial fill upon patient request if the prescription is for a schedule II... Start Date: 03/14/21 Status: Ordered MetFORMIN (Eqv-Glucophage XR) 500 mg oral tablet, extended release 1 tablet = 500 mg, By Mouth, 2 times a day, # 60 tablet, 11 Refills, Maintenance, 08/13/20 14:05:00EDT, ER Tablet, [facility]/pharmacy #[id number], 160.02, cm, 08/13/20 [...]
--- OUTSIDE RECORDS SUMMARY | 2022-11-16 08:16 | XMS_ITS | Continuity of Care Document ---
Author Name Unknown Organization [facility] e Medicine Address Unknown Care Team Providers Care Clerical Warehouse Worker Name Role Phone Not on Staff, PCP Primary Care Physician Unavail able [facility]counter [facility] Date(s): 11/26/20 - 12/03/20 [facility] Attending Physician: Sosa Rivas MD Allergies, Adverse Reactions, [...] 3 Refills, Maintenance, 11/26/20 13:01:00 EDT, Tablet, [facility], Partial fill upon patient request if the prescription is for a schedule II opioid drug.... Start Date: 11/26/20 Status: Ordered MetFORMIN (Eqv-Glucophage XR) 500 mg oral tablet, extended release 1 tablet = 500 mg, By Mouth, 2 times a day, # 60 tablet, 11 Refills, Maintenance, 08/13/20 14:05:00EDT, ER Tablet, [facility]/pharmacy #[id number], 160.02, cm, 08/13/20 13:47:00 EDT, Height, 118.18, kg, 01/18/2017:02:00 EST, Dry Weight Start Date: 08/13/20 Stop Date: 08/08/21 Status: Ordered Ovidrel 250 mcg/0.5 mL subcutaneous solution = 250 mcg, Subcutaneous Injection, Once, Inject when directed, # 2 each, 3 Refills, Soft Stop, 11/30/20 11:02:00 EDT, Solution, [facility], Partial fill upon patient request if the prescription is for a schedule II opioid drug., 160.02, cm... Start Date: 11/30/20 Status: Ordered Pregnyl 80022 u injectable powder for injection See Instructions, 10,000 units subcutaneously Once, # 1 kit, 3 Refills, Maintenance, 12/01/20 9:40:00 EDT, Powder, [facility], Partial fill upon patient [...] 11/26/20 13:04:00 EDT, Route to Pharmacy Electronically, [facility], Partial fill upon patientrequest [...] frequent Strep throat(Confirmed) Active Thyroid nodule(Confirmed) Active Vital Signs Most recent to oldest [Reference Range]: 1 Height 160.02 cm (11/26/20 11:00 AM) Weight 116.7 kg (11/26/20 11:00 AM) Pulse Rate [55-90 bpm] 109 bpm *H* (11/26/20 11:00 AM) Body Mass Index [18.5-24.99] 45.57 *>HHI* (11/26/20 11:00 AM) Blood Pressure [90-138/55-84 mm Hg] 128/ 69mm Hg (11/26/20 11:00 AM) Blood pressure sites Arm, right (11/26/20 11:00 AM) Weight Obtained Via Standing scale (11/26/20 11:00 AM) Social History Social History Type Response Smoking Status Never (less than 100 in lifetime) entered on: 05/28/18 Sex Female
--- OUTSIDE RECORDS SUMMARY | 2022-11-16 08:17 | XMS_ITS | Continuity of Care Document ---
Author Name Unknown Organization [facility] Medicine Address [address] [place] [address]- Care Team Providers Care Broth Mixer Name Role Phone Vikram CHOI, Lonny Osborne Primary Care Physician Encounter [facility] Date(s): 07/26/20 - 08/25/20 [facility] [address] [place] [id number]- Attending Physician: AdmJennifer saldivar Admitting Physician: AdmtrJennifer Referring Physician: Admtr, [id number] Allergies, Adverse Reactions, [...] Soft Stop, 07/26/20 12:23:00 EDT, Tablet, [id number], Partial fill upon patient request if the [...]
--- OUTSIDE RECORDS SUMMARY | 2022-11-16 08:17 | XMS_ITS | Continuity of Care Document ---
Author Name Unknown Organization [facility] Address [address] [place] [id number]- Care Team Providers Care Certified Nurse Operating Room Name Role Phone Vikram CHOI, Lonny Osborne Primary Care Physician [facility]counter [facility] Date(s): 06/20/21 - 07/20/21 [facility] [address] [place] [id number] Allergies, Adverse Reactions, Alerts Substance [...] Maintenance,03/14/21 15:54:00 EST, Route to Pharmacy Electronically, [facility]/pharmacy #[id number], Partial fill upon patient request if the prescription is for a schedule II... Start Date: 03/14/21 Status: Ordered MetFORMIN (Eqv-Glucophage XR) 500 mg oral tablet, extended release 1 tablet = 500 mg, By Mouth, 2 times a day, # 60 tablet, 11 Refills, Maintenance, 08/13/20 14:05:00EDT, ER Tablet, [facility]/pharmacy #[id number], 160.02, cm, 08/13/20 13:47:00 EDT, [...]
--- OUTSIDE RECORDS SUMMARY | 2022-11-16 08:17 | XMS_ITS | Continuity of Care Document ---
Author Name Unknown Organization [facility] Address [address] [place] [address]- Care Team Providers Care Bus Driver Name Role Phone Vikram CHOI, Lonny Osborne Primary Care Physician En[facility] Date(s): 10/31/20 [facility] [address] [place] [address]- Attending Physician: Not on Staff, Attending MD Referring Physician: Cristiano WHIPPLE, Paola Mooney Allergies, Adverse Reactions, Alerts Substance Reaction Severity [...] 3 Refills, Maintenance, 11/26/20 13:01:00 EDT, Tablet, [facility], Partial fill upon patient request if the prescription is for a schedule II opioid drug.... Start Date: 11/26/20 Status: Ordered MetFORMIN (Eqv-Glucophage XR) 500 mg oral tablet, extended release 1 tablet = 500 mg, By Mouth, 2 times a day, # 60 tablet, 11 Refills, Maintenance, 08/13/20 14:05:00EDT, ER Tablet, [facility]/pharmacy #[id number], 160.02, cm, 08/13/20 13:47:00 EDT, Height, 118.18, kg, 01/18/2017:02:00 EST, Dry Weight Start Date: 08/13/20 Stop Date: 08/08/21 Status: Ordered Ovidrel 250 mcg/0.5 mL subcutaneous solution = 250 mcg, Subcutaneous Injection, Once, Inject when directed, # 2 each, 3 Refills, Soft Stop, 11/30/20 11:02:00 EDT, Solution, [facility], Partial fill upon patient request if the prescription is for a schedule II opioid drug., 160.02, cm... Start Date: 11/30/20 Status: Ordered Pregnyl 31100 u injectable powder for injection See Instructions, 10,000 units subcutaneously Once, # 1 kit, 3 Refills, Maintenance, 12/01/20 9:40:00 EDT, Powder, [facility], Partial fill upon patient [...] 4 times a day, Refills 0, Maintenance, 07/25/17 18:10:39 Start Date: 09/05/16 Status: Ordered Provera 10 mg oral tablet 10 mg, 1, tablet, By Mouth, Daily, # 10 tablet, Refills 0, Tot. Refills 0, Maintenance, 11/26/20 13:04:00 EDT, Route to Pharmacy Electronically, [facility], Partial fill upon patientrequest [...]
--- OUTSIDE RECORDS SUMMARY | 2022-11-16 08:17 | XMS_ITS | Continuity of Care Document ---
Author Name Unknown Organization [facility] e Medicine Address Unknown Care Team Providers Care Glaze Sprayer Name Role Phone Not on Staff, PCP Primary Care Physician Unavail able Encounter [facility] Date(s): 11/30/20 - 12/30/20 [facility] Allergies, Adverse Reactions, Alerts [...] 3 Refills, Maintenance, 11/26/20 13:01:00 EDT, Tablet, [facility], Partial fill upon patient request if the prescription is for a schedule II opioid drug.... Start Date: 11/26/20 Status: Ordered MetFORMIN (Eqv-Glucophage XR) 500 mg oral tablet, extended release 1 tablet = 500 mg, By Mouth, 2 times a day, # 60 tablet, 11 Refills, Maintenance, 08/13/20 14:05:00EDT, ER Tablet, [facility]/pharmacy #[id number], 160.02, cm, 08/13/20 13:47:00 EDT, Height, 118.18, kg, 01/18/2017:02:00 EST, Dry Weight Start Date: 08/13/20 Stop Date: 08/08/21 Status: Ordered Ovidrel 250 mcg/0.5 mL subcutaneous solution = 250 mcg, Subcutaneous Injection, Once, Inject when directed, # 2 each, 3 Refills, Soft Stop, 11/30/20 11:02:00 EDT, Solution, [facility], Partial fill upon patient request if the prescription is for a schedule II opioid drug., 160.02, cm... Start Date: 11/30/20 Status: Ordered Pregnyl 63058 u injectable powder for injection See Instructions, 10,000 units subcutaneously Once, # 1 kit, 3 Refills, Maintenance, 12/01/20 9:40:00 EDT, Powder, [facility], Partial fill upon patient [...] 11/26/20 13:04:00 EDT, Route to Pharmacy Electronically, [facility], Partial fill upon patientrequest [...]
--- OUTSIDE RECORDS SUMMARY | 2022-11-16 08:17 | XMS_ITS | Continuity of Care Document ---
Author Name Unknown Organization [facility] Address [address] [place] [address]- Care Team Providers Care Boat Joiner Helper Name Role Phone Vikram CHOI, Lonny Osborne Primary Care Physician Encounter [facility] Date(s): 04/04/21 - 05/04/21 [facility] [address] [place] [id number] Allergies, Adverse Reactions, Alerts Substance Reaction [...] Maintenance,03/14/21 15:54:00 EST, Route to Pharmacy Electronically, [facility]/pharmacy #[id number], Partial fill upon patient request if the prescription is for a schedule II... Start Date: 03/14/21 Status: Ordered MetFORMIN (Eqv-Glucophage XR) 500 mg oral tablet, extended release 1 tablet = 500 mg, By Mouth, 2 times a day, # 60 tablet, 11 Refills, Maintenance, 08/13/20 14:05:00EDT, ER Tablet, [facility]/pharmacy #[id number], 160.02, cm, 08/13/20 13:47:00 EDT, [...]
--- OUTSIDE RECORDS SUMMARY | 2022-11-16 08:17 | XMS_ITS | Continuity of Care Document ---
Author Name Unknown Organization [facility] e Medicine Address Unknown Care Team Providers Care Group Home Supervisor Name Role Phone Vikram CHOI, Lonny Osborne Primary Care Physician [phone] Encounter [facility] Date(s): 01/25/21 - 02/24/21 [facility] Attending Physician: AdmtrJennifer Admitting Physician: AdmtrJennifer Referring Physician: Admtr, [id number] Allergies, Adverse Reactions, Alerts Substance Reaction Severity [...] 3 Refills, Maintenance, 11/26/20 13:01:00 EDT, Tablet, [facility], Partial fill upon patient request if the prescription is for a schedule II opioid drug.... Start Date: 11/26/20 Status: Ordered MetFORMIN (Eqv-Glucophage XR) 500 mg oral tablet, extended release 1 tablet = 500 mg, By Mouth, 2 times a day, # 60 tablet, 11 Refills, Maintenance, 08/13/20 14:05:00EDT, ER Tablet, [facility]/pharmacy #[id number], 160.02, cm, 08/13/20 13:47:00 EDT, Height, 118.18, kg, 01/18/2017:02:00 EST, Dry Weight Start Date: 08/13/20 Stop Date: 08/08/21 Status: Ordered Ovidrel 250 mcg/0.5 mL subcutaneous solution = 250 mcg, Subcutaneous Injection, Once, Inject when directed, # 2 each, 3 Refills, Soft Stop, 11/30/20 11:02:00 EDT, Solution, [facility], Partial fill upon patient request if the prescription is for a schedule II opioid drug., 160.02, cm... Start Date: 11/30/20 Status: Ordered Pregnyl 04560 u injectable powder for injection See Instructions, 10,000 units subcutaneously Once, # 1 kit, 3 Refills, Maintenance, 12/01/20 9:40:00 EDT, Powder, [facility], Partial fill upon patient [...] 11/26/20 13:04:00 EDT, Route to Pharmacy Electronically, [facility], Partial fill upon patientrequest [...]
--- OUTSIDE RECORDS SUMMARY | 2022-11-16 08:17 | XMS_ITS | Continuity of Care Document ---
Author Name Unknown Organization [facility] Address [address] [place] [address]- Care Team Providers Care Nephrology Social Worker Name Role Phone [place] Mary Ellen Corine Primary Care Ruiz martinez [place] [facility] Date(s): 06/28/20 - 07/05/20 [facility] [address] [place] [address]- Attending Physician: Sosa Rivas MD Referring Physician: Christoph WHIPPLE, Wendy Alfred Allergies, Adverse Reactions, Alerts Substance Reaction Severity [...]
--- OUTSIDE RECORDS SUMMARY | 2022-11-16 08:17 | XMS_ITS | Continuity of Care Document ---
Author Name Unknown Organization [facility] e Medicine Address Unknown Care Team Providers Care Risk Investigator Name Role Phone Vikram CHOI, Lonny Osborne Primary Care Physician Encounter [facility] Date(s): 01/25/21 - 02/01/21 [facility] Attending Physician: Kourtney Carrion MD Referring Physician: Sosa Rivas MD Allergies, [...] 3 Refills, Maintenance, 11/26/20 13:01:00 EDT, Tablet, [facility], Partial fill upon patient request if the prescription is for a schedule II opioid drug.... Start Date: 11/26/20 Status: Ordered MetFORMIN (Eqv-Glucophage XR) 500 mg oral tablet, extended release 1 tablet = 500 mg, By Mouth, 2 times a day, # 60 tablet, 11 Refills, Maintenance, 08/13/20 14:05:00EDT, ER Tablet, [facility]/pharmacy #[id number], 160.02, cm, 08/13/20 13:47:00 EDT, Height, 118.18, kg, 01/18/2017:02:00 EST, Dry Weight Start Date: 08/13/20 Stop Date: 08/08/21 Status: Ordered Ovidrel 250 mcg/0.5 mL subcutaneous solution = 250 mcg, Subcutaneous Injection, Once, Inject when directed, # 2 each, 3 Refills, Soft Stop, 11/30/20 11:02:00 EDT, Solution, [facility], Partial fill upon patient request if the prescription is for a schedule II opioid drug., 160.02, cm... Start Date: 11/30/20 Status: Ordered Pregnyl 48549 u injectable powder for injection See Instructions, 10,000 units subcutaneously Once, # 1 kit, 3 Refills, Maintenance, 12/01/20 9:40:00 EDT, Powder, [facility], Partial fill upon patient [...] 11/26/20 13:04:00 EDT, Route to Pharmacy Electronically, [facility], Partial fill upon patientrequest [...]
--- OUTSIDE RECORDS SUMMARY | 2022-11-16 08:17 | XMS_ITS | Continuity of Care Document ---
Author Name Unknown Organization [facility] Address [address] [place] [address]- Care Team Providers Care Menagerie Superintendent Name Role Phone Vikram CHOI, Lonny Osborne Primary Care Physician Encounter [facility] Date(s): 07/01/21 - 07/31/21 [facility] [address] [place] [id number] Allergies, Adverse Reactions, Alerts Substance Reaction [...] Maintenance,03/14/21 15:54:00 EST, Route to Pharmacy Electronically, [facility]/pharmacy #[id number], Partial fill upon patient request if the prescription is for a schedule II... Start Date: 03/14/21 Status: Ordered MetFORMIN (Eqv-Glucophage XR) 500 mg oral tablet, extended release 1 tablet = 500 mg, By Mouth, 2 times a day, # 60 tablet, 11 Refills, Maintenance, 08/13/20 14:05:00EDT, ER Tablet, [facility]/pharmacy #[id number], 160.02, [...]
--- OUTSIDE RECORDS SUMMARY | 2022-11-16 08:17 | XMS_ITS | Continuity of Care Document ---
Author Name Unknown Organization [facility] ter Address [address] [place] [id number]- Care Team Providers Care Rn Labor And Delivery Name Role Phone Jose Manuel WHIPPLE, Cindi Kang Primary Care Physician [place] [facility] [place] 08/23/[address] [address] Discharge Disposition: A-D/C Home Attending Physician: Denise Armando MD Admitting Physician: Denise Armando MD Referring Physician: Denise Armando MD Allergies, Adverse Reactions, Alerts Substance Reaction Severity Status doxycycline Active amoxicillin Active penicillins Active Ceftin Active Immunizations Given and Recorded Vaccine Date Status Refusal Reason influenza virus vaccine, inactivated 01/22/20 Give n Measles/Mumps/Rubella Virus Vaccine 07/13/18 Given tetanus/diphtheria/pertussis, acel(Tdap) 05/03/18 Recorded tetanus/diphtheria/pertussis, acel(Tdap) 06/15/17 Recorded Medications Acetaminophen Tablet 650 mg, Tablet, By Mouth, Every 4 hours, PRN for Pain , Mild, (1-3), may give 325mg per patient preference and re-dose with 325mg within 4 hours, if needed. Patient should only receive a total of 650mg of Acetaminophen every 4 hours., Routine, 08/21... Start Date: 08/21/22 Stop Date: 08/23/22 Status: Discontinued Ibuprofen Tablet 800 mg, Tablet, By Mouth, Every 8 hours, PRN for Pain , Moderate, (4-6), may give 400mg per patientpreference and re-dose with 400mg within 8 hours if needed. Patient should only receive a total of 800mg of Ibuprofen every 8 hours., Routine, ... Start Date: 08/21/22 Stop Date: 08/23/22 Status: Discontinued MetFORMIN (Eqv-Glucophage XR) 500 mg oral tablet, extended release 1 tablet, By Mouth, 2 times a day, # 180 tablet, 0 Refills, [facility] [id number], 160, cm, 08/20/21 18:31:00 EDT, Height, 118.18, [...] obesity Confirmed Active Thyroid nodule Confirmed Active Vital Signs Most recent to oldest [Reference Range]: 1 2 3 4 Height 170 cm (08/23/22 8:00 AM) 170 cm (08/23/22 12:00 AM) 170 cm (08/22/22 3:40 PM) Weight 131.6 kg (08/20/22 9:38 PM) 131.6 kg (08/20/22 5:40 PM) Oxygen Saturation [94-100 %] 100 % (08/23/22 12:00 AM) 98 % (08/22/22 12:00 AM) 97 % (08/21/22 1:00 PM) Pulse Rate [55-90 bpm] 89 bpm (08/23/22 8:00 AM) 96 bpm *H* (08/23/22 12:00 AM) 110 bpm *H* (08/22/22 3:40 PM) Body Mass Index [18.5-24.99 kg/m2] 45.54 kg/m2 *>HHI* (08/20/22 9:38 PM) Blood Pressure [90-138/55-84 mm Hg] 137/79mm Hg (08/23/22 8:00 AM) 140/79mm Hg *H* (08/23/22 12:00 AM) 136/74mm Hg (08/22/22 3:40 PM) Respiratory Rate [16-30 br/min] 18 br/min (08/23/22 8:00 AM) 18 br/min (08/23/22 12:00 AM) 18 br/min (08/22/22 7:01 PM) 18 br/min (08/22/22 7:01 PM) Temperature [96.8-100.4 DegF] 97.8 DegF (08/23/22 8:00 AM) 98.2 DegF (08/23/22 12:00 AM) 98.3 DegF (08/22/22 3:40 PM) Mode of Delivery (Oxygen) Room air (08/23/22 12:00 AM) Room air (08/22/22 12:00 AM) Room air (08/20/22 9:38 PM) Blood pressure sites Arm, left (08/23/22 8:00 AM) Arm, left (08/20/22 9:38 PM) Arm, right (08/20/22 6:07 PM) Temperature Route Oral (08/23/22 8:00 AM) Oral (08/23/22 12:00 AM) Oral (08/22/22 3:40 PM) Dry Weight 131.6 kg (08/20/22 9:38 PM) 131.6 kg (08/20/22 5:40 PM) Weight Obtained Via Patient/family stated (08/20/22 9:38 PM) Standing scale (08/20/22 5:40 PM) Dry Weight Obtained Via Patient/family stated (08/20/22 9:38 PM) Standing scale (08/20/22 5:40 PM) Social History Social History Type Response Smoking Status Never (less than 100 in lifetime) entered on: 05/28/18 Sex History and physical note * Ros Salguero CNM: PERFORM Event Display: History and Physical Hospital Authored Date: [id number] Patient: ??DIONI CHAVEZ ? Age:??27 Years?Sex:??Female?:??1995?? OB Reason for Admission OB Reason for Admission Reason for admission: PROM LMP/EGA/TIAGO Gestational Age (EGA) and TIAGO? * Note: EGA calculated as of 08/20/2022 ?? TIAGO:??08/19/2022?EGA*:??-- ? History?(2,0,1,2)?Method:??Last Menstrual Period??(11/12/2021) History of Present Illness pt here for rom. pt denies regular contractions, bleeding or dfm. pt states no problems this . pt states hx of moderate persisten asthma on flovent and albuterol.?? pt has hx of depression on sertraline.?? pt is planning on epidural for pain management Review of Systems ros all negative except as above Physical Exam Vitals & Measurements T:??98.5?F?? HR:??99??(Monitored)?? RR:??18?? BP:??126/87?? SpO2:??97%?? WT:??131.6??kg? Pelvic Exam:?_? Vulva: Within normal limits. ?? General: ??Within normal limits.? Cardiovascular: ??Within normal limits. ? Cardiovascular Assessment: Heart Rhythm ( Regular ), Heart Sounds ( S1, S2 ). ?? Abdomen/GI: ??Within normal limits,? Abdomen Description: Gravid, Non-tender. ?? Respiratory: ??Within normal limits, Respiratory pattern, Breath Sounds All Lobes.? Extremities: ??Within normal limits, Extremities,?trace?? Edema: Upper Extremites, Lower Extremites.? OB Assessment Baby A Baseline:125 Baseline Description:Normal, 110-160 bpm Baseline Variability:Moderate variability Accelerations:Present 2 or more Deceleration:None Membranes ROM Date, Time:08/20/2022 13:00 EDT Amniotic Fluid Amount:Small Amniotic Fluid Color/Description:Clear Membrane Status:SROM Uterine Monitor Mode, UterineExternal Assessment/Plan Full-term PROM with onset of labor within 24 hours of rupture (O42.02):??admit to ldrp expectant management augment prn cbc hold, start iv, gbs prophylaxis see orders anticipate discussed with dr Wild and cortext to ob team re admission ?? Positive GBS test (B95.1):??gbs prophylaxis ?? OB History History?(2,0,1,2)? # 1 ?Baby 1 ?Outcome Date:??2011 ?Outcome or Result:??Therapeutic , medical ?Gest Age:??Unknown ? Outcome:? Sex:??-- ?? # 2 ?Baby 1 ?Outcome Date:??07/12/2018?Outcome or Result:??Vaginal ?Gest Age:??40 weeks 1 days ? Outcome:??Live ? Sex:??Female?Wt:?3442 g ? Complications:??Meconium stained fluid ?? # 3 ?Baby 1 ?Outcome Date:??09/02/2021?Outcome or Result:??Vaginal ?Gest Age:??40 weeks ? Outcome:??Live ? Sex:??Male?Wt:?3763 g ?Maternal Complications:??Gestational diabetes mellitus, class A>2<; H/O: depression ? Complications:??Meconium stained fluid Labs Labs Labs & Tests Antibody Screen: Negative (01/26/22) Blood Type: A Positive (01/26/22) Chlamydia Trachomatis Amplified Probe: NEGATIVE (07/20/22) Creatinine-Blood: 0.7 mg/dL (08/14/22) Glucose 3hr Gest Arnaud, +120 minutes: 126 mg/dL (05/29/22) Glucose 3hr Gest Arnaud, +180 minutes: 80 mg/dL (05/29/22) Glucose 3hr Gest Arnaud, +60 minutes:??190 mg/dL??High (05/29/22) Glucose 50 Gm, +60 Minutes:??151 mg/dL??High (05/15/22) Glucose Tolerance, Fastin mg/dL (05/29/22) Hct:??34.7 %??Low (08/20/22) Hepatitis B Surface Antigen: NEGATIVE (01/26/22) Hepatitis C Ab: NEGATIVE (01/26/22) Hgb:??11.1 Gm/dL??Low (08/20/22) HIV 4th Generation Ab-Ag Result: NEGATIVE (01/26/22) RPR Titer Result: NOT INDICATED (05/15/22) Rubella IgG Ab: EQUIVOCAL (01/26/22) Syphilis Screen by KEV: NEGATIVE (05/15/22) Urine Culture: Urine Culture (05/04/22) Problem List Active Active Problem List Acne: (Medical) Asthma: (Medical) Eczema: (Medical) Gestational diabetes: (Medical) Migraine: (Medical) PCOS (polycystic ovarian syndrome): (Medical) : (Obstetric) adding (08/19/21) Severe obesity: (Medical) Thyroid nodule: (Medical) Procedure/Surgical History History of tonsillectomy biopsy of Thyroid nodule Home Medications Albuterol: 2 puffs, Inhalation, 4 times a day Aspirin: 162 mg = 2 tablet, By Mouth, Daily at bedtime Metformin: 1 tablet, By Mouth, 2 times a day Multivitamin, : By Mouth, Daily Sertraline: 50 mg = 1 tablet, By Mouth, Daily Allergies Ceftin amoxicillin doxycycline penicillins Social History Tobacco Use: Never (less than 100 in lifetime). Family History No family history recorded. Plan OB Plan Circumcision Plan: Before discharge (08/20/22) Infant Feeding Plan: Formula (08/20/22) Labor Coping Mechanisms: Epidural (08/20/22) Patient Requests: Boy (08/20/22) Hospital Progress note * Leah Valerio RN: PERFORM, SIGN, VERIFY Event Display: Progress Note Hospital Authored Date: [id number] Patient: DIONI CHAVEZ Age: 27 years Sex: Female : 1995 Associated Diagnoses: None Author: Leah Valerio RN Findings Assumed care. Safety check done. Pt bonding well with infant and caring for infant appropriately. Mother formula feeding. taking good amounts. @,firm, mild bleeding. Ambulating independently. Voiding well. PO intake good no N/V. VSS. No major concerns ready for d/c. Will continue to monitor. * Mei Melton RN: PERFORM, SIGN, VERIFY Event Display: Progress Note Hospital Authored Date: Patient: DIONI CHAVEZ Age: 27 years Sex: Female : 1995 Associated Diagnoses: None Author: Mei Melton RN pt A+Ox4. VSS. bleeding stable. bottle feeding adequately. pt and FOB caring for appropriately. plan of care passed on to esther RN. Findings Problem Related to Alteration in Comfort : Alteration in Comfort/new 08/22/2022 17:00 EDT Alteration in Comfort Related to Other: post Goals & Outcomes: Comfort Pt will report acceptable level of comfort & pain control, Pt will demonstrate necessary skills to manage pain, Non-verbal indicators will indicate comfort/pain control Interventions Implemented: Comfort Assess pain using appropriate pain scale/tools Goals/Interventions, Comfort Yes Comfort, Problem Start 08/20/2022 22:42 Reviewed plan with, Comfort Patient Patient Progression, Comfort Pt progressing according to plan Comfort, Problem Ongoing Yes 08/22/2022 9:00 EDT Alteration in Comfort Related to Other: post Goals & Outcomes: Comfort Pt will report acceptable level of comfort & pain control, Pt will demonstrate necessary skills to manage pain, Non-verbal indicators will indicate comfort/pain control Interventions Implemented: Comfort Assess pain using appropriate pain scale/tools Goals/Interventions, Comfort Yes Comfort, Problem Start 08/20/2022 22:42 Reviewed plan with, Comfort Patient Patient Progression, Comfort Pt progressing according to plan Comfort, Problem Ongoing Yes . * Denise Armando MD: PERFORM, SIGN, VERIFY Event Display: Progress Note Hospital Authored Date: [id number] Patient: DIONI CHAVEZ Age: 27 years Sex: Female : 1995 Associated Diagnoses: None Author: Denise Armando MD Basic Information Summary : 4 . Baby A - Weight: 3.951 kg Baby A - Date, Time of : 08/21/22 12:56:00 Baby A - Gender: Female Baby A - Complications: Meconium stained fluid EGA at Documented Date, Time: 40W 2D Weight at Delivery Baby A - Delivery Type: Vaginal Delivery Complications: None Subjective No c/o Objective Recent Vital Signs Temperature: 98.3 DegF (08/22/22 00:00:00) Pulse Rate: 91 bpm High (08/22/22 00:00:00) Respiratory Rate: 16 br/min (08/22/22 04:00:00) Systolic Blood Pressure: 125 mm Hg (08/22/22 00:00:00) Diastolic Blood Pressure: 81 mm Hg (08/22/22 00:00:00) Oxygen Saturation: 98 % (08/22/22 00:00:00) VSS afeb FF nl lochia extr benign Impression and Plan Impression Post- day # 1 Meeting milestones Plan Routine post care Note * Leah Valerio RN: PERFORM Event Display: Discharge/Transfer Note Hospital Authored Date: [id number] Nursing Discharge Note Entered On: 08/23/2022 9:44 EDT Performed On: 08/23/2022 9:45 EDT by Leah Valerio RN Nursing Discharge Note 2 Discharge Time : 08/23/2022 9:45 EDT Discharge Level of Care at Discharge : Home/Halfway/Foster Care Patient Left Unit Via : Ambulatory Patient Accompanied Off Unit with : Responsible adult DC Instructions Provided & Signed by Pt : Yes Patient Understands D/C Instructions : Yes Patient Instructions Discharge Signed : Yes Did Pt have Specialty Bed or Wound Vac : No Leah Valerio RN - 08/23/2022 9:43 EDT * Denise Armando MD: PERFORM, SIGN, VERIFY Event Display: Discharge/Transfer Note Hospital Authored Date: [id number] Patient: DIONI CHAVEZ Age: 27 years Sex: Female : 1995 Associated Diagnoses: None Author: Denise Armando MD Discharge Information Admission Date: 08/20/2022 Discharge Date 08/23/2022 Reason for Hospitalization: Reason for Admission: PROM . Subsequent Reason for Admission: Induction of Labor ( Reason for Induction ( PROM ), Method of Induction ( Pitocin ) ). Delivery Summary Maternal Information Labor Information Baby A Labor Onset Methods: Augmented Augmentation Methods: Oxytocin infusion Delivery Information Gestational Age at Delivery: 40W 2D Anesthesia OB: Epidural 08/21/22 04:12:49 Obstetrical Laceration: Perineal laceration Perineal Laceration: Midline, 1st degree Perineal Laceration Repair: Not repaired Delivery Complications: None Blood Loss(ml): 200 mL Baby A Delivery Information Delivery Type: Vaginal Date, Time of : 08/21/22 12:56:00 Position: Supine Foot of bed removed: Yes Delayed Cord Clamping: Yes Placenta Delivery Date/Time: 08/21/22 12:58:00 Placenta Delivery Method: Assisted Placenta Appearance: Normal Placenta to Pathology: No Care Team Attending Provider: Denise Armando MD Delivery Physician: Gino CHOI, Wendy material handling equipment stevedore #1: Lai RN, Mandi material handling equipment stevedore #2: Kourtney Gamino RN Appeals And Generalist Clerk: Mona Beck DO Anesthesiology Attending: Julien Anderson MD Time NICU Team Called: 08/21/22 12:54:00 Labor Information ROM Date, Time: 08/20/22 13:00:00 monitoring: External monitor Information Outcome: Live Position: Occiput anterior Weight: 3.951 kg Score 1 minute: 8 Score 5 minute: 9 Score 10 minute: 9 Transferred To: Care area with Family Umbilical Cord Description: 3 vessel cord Complications: None Gender: Female Procedures Performed during hospitalization Vaginal: Vaginal delivery. Epidural. Condition of patient on discharge: Discharge condition: Excellent. Compared to admission: Improved. Status:: Formula feeding. Final Diagnoses:: Active Problems (9) Acne Asthma Eczema Gestational diabetes Migraine PCOS (polycystic ovarian syndrome) Severe obesity Thyroid nodule . * Iman BABIN, Leah: PERFORM Event Display: Patient Education/Instruction Authored Date: [id number] Inpatient Adult Discharge Instructions [address] [address] Name: DIONI CHAVEZ : 1995 Visit: 08/20/2022 19:05:00 Current Date: 08/23/2022 08:48 Account: [id number] Inpatient Adult Discharge Instructions We would like to thank you for allowing us to assist you with your healthcare needs. The following includes patient education materials and information regarding your injury/illness. Our entire staffstrives to provide an excellent experience for our patients and their families. PLEASE ENSURE YOU FOLLOW-UP PER THE INSTRUCTIONS BELOW! ?? YOUR OPINION IS IMPORTANT TO US! Please complete the survey you may receive by mail or email. Your feedback will be used to make improvements to the healthcare experiences of our patients and their families. Surveys are administered by [employer] ?? If further treatment with your primary care physician or another doctor is recommended, it is important for you to keep the appointment. Call your primary care physician or return to the Emergency Department immediately if your condition worsens, fails to improve, or new symptoms develop. If you need to find a doctor, you can call [facility] for a referral at [phone] or toll free at [phone] or log in to [email or web address].. ?? You can view and manage your care through the patient portal or by using a health care manda of your choosing. [employer] is a website that allows you to securely view your medical information including your hospital discharge summary, office visit summaries, medications and follow-up visits. You can also request appointments, renew medications, and request access to your medical information using a health care manda of your choosing, or just ask a question. You can enroll at [email or web address] or register during your next office visit. You have been discharged from [facility], Patient Care Unit: [facility]. If you have any questions regarding these instructions after you leave, please call us and we will be happy to assist you. [facility] Your Care Team Attending Physician Tr CHOI, Denise Discharging Providers Tr CHOI, Denise Reason for Admission PROM Your Diagnosis Full-term PROM with onset of labor within 24 hours of rupture Positive GBS test Tests Performed Below is a partial list of the tests performed during your hospitalization. You may have had other tests and procedures not included in this list. Please discuss all test results with your provider. CBC COVID-19 (2019 Novel Coronavirus) PCR?-- Results Pending -- You will be contacted within 72 hours with your results. Primary Care Provider Jose Manuel WHIPPLE, Cindi Kang Advance Directive Health Care Proxy on File Yes - Health Care Proxy Discharge Vitals Temperature: 97.8 DegF Height: 170 cm Pulse Rate: 89 bpm Weight: 131.6 kg Respiratory Rate: 18 br/min Body Mass Index:??45.54 kg/m2??Critical Systolic Blood Pressure: 137 mm Hg Body surface area: 2.49 Diastolic Blood Pressure: 79 mm Hg ?? Oxygen Saturation: 100 % ?? Studies Pending All tests and labs ordered during this hospital stay have been completed unless listed below. Please discuss all pending results with your provider listed above in these instructions. ?? COVID-19 (2019 Novel Coronavirus) PCR Hold Lavender Tube (BB) What to do next Instructions From Your Doctor Discharge Orders Instructions from your Care Team Discharge Care Instructions for the New Mom?? Please take a few moments to read through these helpful instructions before you leave the hospital.??Your nurse will be glad to answer any questions you may have. ??You can also find this and more information throughout the purple??Becoming a Family??booklet,??[facility] New Beginnings Guide??and the?? Consultation Services Guide??given to you after the of your baby. ??You may also phone our nurses stations if you have further questions. ??[facility]: ??First Floor ([phone]), Second Floor ([phone]). ?? Please call your provider if you have any questions or concerns ??before your next appointment. For ongoing support??please?Like?us on our Facebook page?[facility] New Beginnings?and sign up for our email newsletter at??[email or web address]. ??News and information will be sent to you??until your baby???s third birthday. Instructions for the New Mother Activity:?? For the next 2 weeks at home?no heavy lifting, avoid unnecessary stair climbing, and no driving (especially if you are taking medicine that may make you sleepy or feel that you are sleep deprived). ?? For the next 4-6 weeks - no tampons, no douches, no sexual intercourse. Use your leo bottle to rinse your perineum until your vaginal flow stops. ??If you have stitches in your bottom, they generally dissolve within 7-10 days. ??Apply Tucks/witch lexii pads until your soreness subsides. ??Use your bathroom at home every 3 to 4 hours, rinse, and change your pads. Warm showers feel great on achy muscles, sore backs and sore bottoms. Exercise: Walking is the best form of exercise. ??Wait until your follow up appointment with your provider in4-6 weeks before engaging in more strenuous activity. Diet: Drink plenty of fluids to avoid constipation and to help support your recovery. Eat plenty of iron rich foods such as red meat, iron fortified cereals like Total and Cream of Wheat, raisins, prunes, greens and spinach. ??These will help to build your blood count back up as all women lose some blood after delivery. ??Also add foods rich in Vitamin C such as strawberries, oranges, papayas, kale and huitron peppers. Continue to take your vitamins if you are . ??If you are not follow the instructions of your provider. ??If you were prescribed iron supplements such as ferrous sulfate, it is important to continue these until your doctor or character artist tells you to stop. Breast Care for Bottle Feeding Mothers: Engorgement may occur within the first week after delivery. ??Your breasts may become hard and verytender. ??A cool compress of cleaned raw green cabbage leaves applied to the breast and changed as leaves wilt has been proven helpful for many women. ??Ice packs or frozen bags of peas also work nicely to ease the discomfort. ??The soreness will only last a couple of days. Keep your back turned to the water while showering to decrease breast stimulation. Wear a snug fitting bra such as a sports bra. Control: Your doctor or character artist will discuss control methods with you when you are discharged from thespital or at your checkup. ??Be sure to let your provider know if you are . You had a Paragard IUD placed on . ??This control method is effective for 10 years. You had a Liletta placed on . ??This control method is effective for up to 5 years. You had a Nexplanon placed on . ??This control method is effective for up to 3 years. You received a Depo Provera injection on . ??This control method is effective as longas you repeat it every 3 months.?Schedule your next dose before . You have a prescription for control pills . ??It is important to take a pill everyday at around the same time of day for effective control protection. ?? Pain Management: Cramping after is common and increases in strength with each baby you have. ??If you experience painful cramps, and have no allergies to acetaminophen (Tylenol) or ibuprofen (Motrin), you may continue to take these medications as you did in the hospital. ??Ibuprofen is also helpful with back aches following epidurals, perineal pain following a vaginal delivery, and moderate incisional pain after a section or a tubal ligation. ?? If you experience gas distention, especially after surgery, you may take an over the counter medication called simethicone. ??Take these chewable tablets 4 times a day as needed and directed on the package. ??Keep moving. ??Walking or rocking in a chair, will help to move the gas along. ??Stone tea made with heated stone tato (instead of water) and a tea bag, stirred to dissolve carbonation (bubbles) is a helpful drink to soothe a gassy stomach. Warning Signs of a Problem to Notify Your Doctor or Hog Counter of: Heavy vaginal bleeding?which is??soaking a pad every hour??with bright red blood. Passing blood clots the size of an egg or larger. An incision that is not healing. A temperature greater than or equal to 100.4 especially if accompanied by any of the following symptoms?painful, frequent urination; extreme back or flank pain; lower belly pain with a foul smell to your vaginal flow; a red hard hot area on your breast. ?? Severe headache that does not go away after taking acetaminophen or ibuprofen. ?? A headache that changes your vision, including seeing spots or blurring. Right sided upper abdominal pain along the rib cage area. Pain in your legs that is warm and tender to the touch. depression signs may include?loss of interest in your baby, weepiness, difficulty focusing, weight loss with no appetite, exhaustion, feeling overwhelmed or anxious, feelings??of despair, or thoughts of harming yourself or your baby. ??These symptoms are important and should be discussed with your doctor or character artist. depression may develop over a period of time and needs prompt medical attention. ??Do not suffer in silence. ??In both the??Becoming a Family??booklet and the??[facility]??New Beginnings Guide??there is a screening tool used to identify women at risk, called the [place] Scale which you have taken in the office prior to delivery and again during your ho spital stay. ??Three to four weeks after your delivery, and before your check with your provider, take this test and share your results with your provider. ??Be sure to mention any score of 10 or more. ?? Many women, and even some partners, may experience the?baby blues?? . ??This is a state of feeling overwhelmed and weepy. ??Discomfort from childbirth, hormonal changes, exhaustion, changes to your body and lifestyle are a few of the things that contribute to the highs and lows new parents go through. ??Don???t be afraid to ask your partner or family and friends for some help at home so you can get some rest and a few minutes to yourself. ??The blues will quickly pass. Personal Safety: Every person has the right to feel safe at home and live free from physical or emotional harm. ??Ifyou have suffered mental or physical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
--- OUTSIDE RECORDS SUMMARY | 2022-11-16 08:17 | XMS_ITS | Continuity of Care Document ---
Author Name Unknown Organization [facility] Address [address] [place] [address]- Care Team Providers Care Vice President Media Relations Name Role Phone Vikram CHOI, Lonny Osborne Primary Care Physician [phone] Encounter [facility] Date(s): 12/31/20 - 01/30/21 [facility] [address] [place] [id number] Attending Physician: AdmtrJennifer Admitting Physician: Admtr, [id number] Referring Physician: Admtr, [...] 3 Refills, Maintenance, 11/26/20 13:01:00 EDT, Tablet, [facility], Partial fill upon patient request if the prescription is for a schedule II opioid drug.... Start Date: 11/26/20 Status: Ordered MetFORMIN (Eqv-Glucophage XR) 500 mg oral tablet, extended release 1 tablet = 500 mg, By Mouth, 2 times a day, # 60 tablet, 11 Refills, Maintenance, 08/13/20 14:05:00EDT, ER Tablet, [facility]/pharmacy #[id number], 160.02, cm, 08/13/20 13:47:00 EDT, Height, 118.18, kg, 01/18/2017:02:00 EST, Dry Weight Start Date: 08/13/20 Stop Date: 08/08/21 Status: Ordered Ovidrel 250 mcg/0.5 mL subcutaneous solution = 250 mcg, Subcutaneous Injection, Once, Inject when directed, # 2 each, 3 Refills, Soft Stop, 11/30/20 11:02:00 EDT, Solution, [facility], Partial fill upon patient request if the prescription is for a schedule II opioid drug., 160.02, cm... Start Date: 11/30/20 Status: Ordered Pregnyl 19930 u injectable powder for injection See Instructions, 10,000 units subcutaneously Once, # 1 kit, 3 Refills, Maintenance, 12/01/20 9:40:00 EDT, Powder, [facility], Partial fill upon patient [...] 11/26/20 13:04:00 EDT, Route to Pharmacy Electronically, [facility], Partial fill upon patientrequest [...]
--- OUTSIDE RECORDS SUMMARY | 2022-11-16 08:17 | XMS_ITS | Continuity of Care Document ---
Author Name Unknown Organization [facility] ter Address [address] [place] [id number]- Care Team Providers Care System Developer Associate Manager Name Role Phone Jose Manuel WHIPPLE, Cindi Kang Primary Care Phys[place] [facility] [place] - 08/14/[address] [address] Discharge Disposition: A-D/C Home Attending Physician: Denise [...] Maintenance,03/14/21 15:54:00 EST, Route to Pharmacy Electronically, [facility]/pharmacy #[id number], Partial fill upon patient request if the prescription is for a schedule II... Start Date: 03/14/21 Status: Ordered MetFORMIN (Eqv-Glucophage XR) 500 mg oral tablet, extended release 1 tablet, By Mouth, 2 times a day, # 180 tablet, 0 Refills, [facility] STORE [id number], 160, cm, 08/20/21 18:31:00 EDT, Height, 118.18, [...] to oldest [Reference Range]: 1 2 3 Weight 132.5 kg (08/14/22 12:12 PM) Oxygen Saturation [94-100 %] 97 % (08/14/22 1:01 PM) 98 % (08/14/22 12:54 PM) 98 % (08/14/22 12:40 PM) Pulse Rate [55-90 bpm] 98 bpm *H* (08/14/22 12:12 PM) Blood Pressure [90-138/55-84 mm Hg] 123/71mm Hg (08/14/22 2:30 PM) 111/74mm Hg (08/14/22 2:15 PM) 110/75mm Hg (08/14/22 2:00 PM) Respiratory Rate [16-30 br/min] 18 br/min (08/14/22 12:12 PM) Temperature [96.8-100.4 DegF] 97.6 DegF (08/14/22 12:12 PM) Blood pressure sites Arm, right (08/14/22 12:12 PM) Temperature Route Oral (08/14/22 12:12 PM) Weight Obtained Via Standing scale (08/14/22 12:12 PM) Social History Social History Type Response Smoking Status Never (less than 100 in lifetime) entered on: 05/28/18 Sex History and physical note * Tasha Mix CNM: MODIFY, MODIFY, PERFORM Event Display: History and Physical Hospital Authored Date: [id number] Patient: ??DIONI CHAVEZ ? Age:??27 Years?Sex:??Female?:??1995?? History of Present Illness Dioni is a at 39+2 She presents with concern for her BP Has had a mild BAIRES since yesterday evening, which did not respond to Tylenol Took her BP at home with a wrist cuff and reports 150s/100s Also c/o: back pain, spots in her vision, swelling in her hands and face No DFM, bleeding, LOF or painful contractions.?? Review of Systems All systems rev'd and neg except as noted above. Physical Exam Vitals & Measurements T:??97.6?F?? HR:??95??(Monitored)?? RR:??18?? BP:??121/72?? SpO2:??98%?? WT:??132.5??kg? Membranes: Intact ?? General:??Alert, oriented and cooperative. HEENT: Within normal limits.? Cardiovascular: Regular rate and rhythm; appears??well-perfused. Abdomen/GI:??Bowel sounds present in all four quadrants; gravid, non-tender, obese Respiratory:?Normal respiratory pattern and breath sounds in all lobes. ?? Musculoskeletal: ??Within normal limits. ?? Extremities: No significant edema present. OB Assessment NST Baseline: 125 Baseline Variability: Moderate variability Accelerations: Present Decels: None Contraction Rhythm: Irregular Assessment/Plan Impression: 27 yo at 39+2 weeks No evidence of gHTN or PRE-E at this time Headache improved with Reglan and Benadryl FHR reactive ?? Plan: Reglan and Benadryl sent to pharmacy for PRN use at home Discharged home with pre-e precautions Follow up with next visit as scheduled in 2 days, or PRN Discussed with ??Cielo Mo, who agrees with plan ?? OB History History?(2,0,1,2)? # 1 ?Baby 1 ?Outcome Date:??2011 ?Outcome or Result:??Therapeutic , medical ?Gest Age:??Unknown ? Outcome:? Sex:??-- ?? # 2 ?Baby 1 ?Outcome Date:??07/12/2018?Outcome or Result:??Vaginal ?Gest Age:??40 weeks 1 days ? Outcome:??Live ? Sex:??Female?Wt:?3442 g ? Complications:? Complications:??Meconium stained fluid ?? # 3 ?Baby 1 ?Outcome Date:??09/02/2021?Outcome or Result:??Vaginal ?Gest Age:??40 weeks ? Outcome:??Live ? Sex:??Male?Wt:?3763 g ?Maternal Complications:??Gestational diabetes mellitus, class A>2<; H/O: depression ? Complications:??Meconium stained fluid Labs Labs Labs & Tests Antibody Screen: Negative (01/26/22) Blood Type: A Positive (01/26/22) Chlamydia Trachomatis Amplified Probe: NEGATIVE (07/20/22) Creatinine-Blood: 0.6 mg/dL (06/29/22) Glucose 3hr Gest Arnaud, +120 minutes: 126 mg/dL (05/29/22) Glucose 3hr Gest Arnaud, +180 minutes: 80 mg/dL (05/29/22) Glucose 3hr Gest Arnaud, +60 minutes:??190 mg/dL??High (05/29/22) Glucose 50 Gm, +60 Minutes:??151 mg/dL??High (05/15/22) Glucose Tolerance, Fastin mg/dL (05/29/22) Hct: 38.8 % (06/29/22) Hepatitis B Surface Antigen: NEGATIVE (01/26/22) Hepatitis C Ab: NEGATIVE (01/26/22) Hgb: 12.2 Gm/dL (06/29/22) HIV 4th Generation Ab-Ag Result: NEGATIVE (01/26/22) RPR Titer Result: NOT INDICATED (05/15/22) Rubella IgG Ab: EQUIVOCAL (01/26/22) Syphilis Screen by KEV: NEGATIVE (05/15/22) Urine Culture: Urine Culture (05/04/22) Problem List Active Active Problem List Acne: (Medical) Asthma: (Medical) Eczema: (Medical) Gestational diabetes: (Medical) Migraine: (Medical) PCOS (polycystic ovarian syndrome): (Medical) : (Obstetric) (08/19/21) Severe obesity: (Medical) Thyroid nodule: (Medical) [...] Use: Never (less than 100 in lifetime). Plan OB Plan Circumcision Plan: Before discharge (08/14/22) Infant Feeding Plan: Formula (08/14/22) Labor Coping Mechanisms: Epidural (08/14/22) Patient Requests: Boy (07/03/23) Lab Results Test Name Test Result Date/Time WBC 6.9 k/mm3 08/14/2022 12:39 EDT RBC 4.14 m/mm3 08/14/2022 12:39 EDT Hgb 10.8 Gm/dL 08/14/2022 12:39 EDT Hct 33.5 % 08/14/2022 12:39 EDT MCV 80.9 femtoliters 08/14/2022 12:39 EDT MCH 26.1 pg 08/14/2022 12:39 EDT MCHC 32.2 g/dL 08/14/2022 12:39 EDT Platelet Count 218 k/mm3 08/14/2022 12:39 EDT RDW-SD 39.5 femtoliters 08/14/2022 12:39 EDT MPV 11.3 femtoliters 08/14/2022 12:39 EDT Nucleated RBC (Automated) 0.0 #/100 WBC'S 08/14/2022 12:39 EDT Abs. NRBC 0.0 k/mm3 08/14/2022 12:39 EDT BUN 11 mg/dL 08/14/2022 12:39 EDT Creatinine-Blood 0.7 mg/dL 08/14/2022 12:39 EDT AST (SGOT) 12 units/L 08/14/2022 12:39 EDT ALT (SGPT) 7 units/L 08/14/2022 12:39 EDT TP/Cr Ratio 0.14 08/14/2022 12:51 EDT Note * Kami Carr: PERFORM Event Display: Discharge/Transfer Note Hospital Authored Date: [id number] Nursing Discharge Note Entered On: 08/14/2022 15:12 EDT Performed On: 08/14/2022 15:07 EDT by Kami Carr Nursing Discharge Note 2 Discharge Time : 08/14/2022 15:07 EDT Discharge Level of Care at Discharge : Home/Fdc/Foster Care Patient Left Unit Via : Ambulatory Patient Accompanied Off Unit with : Significant other DC Instructions Provided & Signed by Pt : Yes Patient Understands D/C Instructions : Yes Patient Instructions Discharge Signed : Yes Did Pt have Specialty Bed or Wound Vac : No Kami Carr - 08/14/2022 15:12 EDT * Angelina HOUGH-TALYA, Kami: PERFORM Event Display: Patient Education/Instruction Authored Date: [id number] Inpatient Adult Discharge Instructions [address] [address] Name: DIONI CHAVEZ : 1995 Visit: 08/14/2022 11:41:00 Current Date: 08/14/2022 15:00 Account: [id number] Inpatient Adult Discharge Instructions We would like [...] and their families. Surveys are administered by [employer] ?? If further treatment with your primary care physician or another doctor is recommended, it is important for you to keep the appointment. Call your primary care physician or return to the Emergency Department immediately if your condition worsens, fails to improve, or new symptoms develop. If you need to find a doctor, you can call [facility] [employer] for a referral at [phone] or toll free at [phone]) or log in to [email or web address].. ?? You can view and manage your care through the patient portal or by using a health care manda of your choosing. [employer] is a website that allows you to securely view your medical information including your hospital discharge summary, office visit summaries, medications and follow-up visits. You can also request appointments, renew medications, and request access to your medical information using a health care manda of your choosing, or just ask a question. You can enroll at [email or web address] or register during your next office visit. You have been discharged from [facility], Patient Care Unit: WETU1. If you have any questions regarding these instructions after you leave, please call us and we will be happy to assist you. [facility] Your Care Team Attending Physician Denise Armando MD Tests Performed Below is a partial list of the tests performed during your hospitalization. You may have had other tests and procedures not included in this list. Please discuss all test results with your provider. BUN CBC Creatinine Protein/Creatinine Ratio Urine SGOT SGPT Primary Care Provider Jose Manuel WHIPPLE, Cindimomo Paten Advance Directive Health Care Proxy on File Yes - Health Care Proxy Discharge Vitals Temperature: 97.6 DegF Weight: 132.5 kg Pulse Rate:??98 bpm??High ?? Respiratory Rate: 18 br/min ?? Systolic Blood Pressure: 123 mm Hg ?? Diastolic Blood Pressure: 71 mm Hg ?? Oxygen Saturation: 97 % ?? Studies Pending All tests and labs ordered during this hospital stay have been completed unless listed below. Please discuss all pending results with your provider listed above in these instructions. ?? No incomplete studies found What to do next Instructions From Your Doctor Discharge Orders You Need to Schedule the Following Appointments Follow Up with??[facility] [phone] Why: Please keep next scheduled appointment Discharge Medications DIONI CHAVEZ :1995 Visit Date:08/14/2022 Medications: Please continue your medications until treatment is completed or stopped by your provider. Medications not listed below should be discontinued. Discuss any questions related to medications with your provider. What How Much When Instructions Next Dose Unchanged Albuterol (ProAir HFA 90 mcg/ inh inhalation aerosol with adapter) 2 puff(s) Inhalation 4 times a day Unchanged Aspirin (aspirin 81 mg oral delayed release tablet) 2 tab(s) Oral Daily at Bedtime Unchanged Metformin (MetFORMIN (Eqv-Glucophage XR) 500 mg oral tablet, extended release) 1 tab(s) Oral Twice a day Unchanged Multivitamin, ( Multivitamins) Oral Daily Unchanged Sertraline (sertraline 50 mg oral tablet) 1 tab(s) Oral Daily Test Results Below is a partial list of the most recent Laboratory test results done prior to this discharge. You may have had other tests and procedures not included in this list. Please discuss all test resultswith your provider. BUN (08/14/2022) ???BUN - 11 mg/dL CBC (08/14/2022) ???WBC - 6.9 k/mm3???RBC - 4.14 m/mm3???Hgb - 10.8 Gm/dL???Hct - 33.5 %???MCV - 80.9 femtoliters???MCH - 26.1 pg???MCHC - 32.2 g/dL???Platelet Count - 218 k/mm3???RDW-SD - 39.5 femtoliters???MPV - 11.3 femtoliters???Nucleated RBC (Automated) - 0.0 #/100 WBC'S???Abs. NRBC - 0.0 k/mm3 Creatinine (08/14/2022) ???Creatinine-Blood - 0.7 mg/dL???Estimated GFR Creatinine - 122 ML/MIN/1.73 M2 Protein/Creatinine Ratio Urine (08/14/2022) ???Protein, Total Urine Random - 8 mg/dL???TP/Cr Ratio - 0.14???Creatinine, Urine - 53.9 mg/dL SGOT (08/14/2022) ???AST (SGOT) - 12 units/L SGPT (08/14/2022) ???ALT (SGPT) - 7 units/L Allergies (NKA means No Known Allergies) Ceftin amoxicillin doxycycline penicillins Problems Active Problems??(9) Acne?? Asthma?? Eczema?? Gestational diabetes?? Migraine?? PCOS (polycystic ovarian syndrome)? Severe obesity?? Thyroid nodule?? Education Materials Below is the list of Educational Leaflet Providered with your Discharge Instructions. What Happens During Labor: Stages 2 and 3?? Labor and Childbirth: Your Body Prepares?? Labor and Childbirth: Active Labor?? What Happens During Labor: Stage 1?? How to Know You Are in Labor?? Recognizing Labor?? False Labor?? Kick Counts?? Valuables and Belongings I fully understand and agree that [facility] accepts no responsibility for all my [...] encouraged to send valuables and belongings home. ? Other Discharge Information ? Pulmonary Rehab Status?? [...] are strongly encouraged to quit. Please call [facility] [employer] at [phone] or [phone] ([phone]) or log in to [email or web address] for referrals to smoking cessation programs. ?? 230 Suicide & Crisis Lifeline is available 04/09 if you or someone you know needs to find a reason to keep living. By calling 911 you'll be connected to a skilled, trained counselor at a crisis center in your area. INPATIENT DISCHARGE INSTRUCTIONS SIGNATURE PAGE DIONI CHAVEZ Location:[facility] Registration Date and Time:08/14/2022 11:41 EDT Primary Care Physician: Jose Manuel WHIPPLE, Cindi Kang, Attending Physician: Denise Armando MD, I SCOTT, DIONI, have received the above patient education materials/instructions and have verbalized understanding. If ambulance or transport services are being used I further acknowledge being given a choice of service. ?? If you need to contact me, please call me at this number: . Patient/Cuff Slitter Name: Patient/Cuff Slitter Signature: Relationship to Patient: Witness Name/Signature: Date: * Alfaro GIANLUCA-Kami BABIN: PERFORM Event Display: Patient Education Leaflets Authored Date: [id number] What Happens During Labor: Stages 2 and 3 ?? What Happens During Labor: Stages 2 and 3 - Video Stage 2 starts once your cervix is fully dilated. It ends with the of your baby. Stage 3 starts after your baby is born. To view the video go to this web address: [email or web address] Or, scan this QR code with your smart phone Last Reviewed Date: 2019 ?? [employer]. All rights reserved. This information is not intended as a substitute for professional medical care. Always follow your healthcare professional's instructions. ?? * Angelina HOUGH-TALYA, Kami: PERFORM Event Display: Patient Education Leaflets Authored Date: [id number] Labor and Childbirth: Your Body Prepares ?? [address] Labor and Childbirth: Your Body Prepares Labor is the series of uterine contractions that open (dilate) and thin (efface) your cervix for . Your due date is a guide to when labor will begin. But babies often come days or weeks before or after due dates. Even so, labor need not take you by surprise. In the last weeks of , youor your healthcare provider may notice changes that mean labor is near. ??? The placenta and umbilical cord send nourishment to the baby. ??? The amniotic sac (bag of water) holds the fluid that surrounds your baby in the uterus. ??? The uterus (womb) holds the baby as it grows. ??? The cervix is the narrow opening of the uterus. ??? The vagina is the canal. ??? The mucous plug helps keep bacteria out of the uterus. ??? The perineum is the area between the vaginal opening and the anus. ??? The pubic symphysis joint lies between the pelvic bones and allows thebaby to pass through. Changes in your body Physical changes often signal that your baby will soon be born: ??? Discharge from your vagina may increase and become thicker. You may notice a pink or brownish discharge called the bloody show. ???The mucous plug may break down over a few weeks or all at once. Losing the plug doesn???t mean thatlabor will start right away. ??? You may feel Gilliam Blackwood contractions (false labor). These irregular contractions start to soften and thin the cervix. Many women mistake these contractions for true labor. They may be more??noticeable??towards the end of the day. ??? Feeling like the baby has dropped lower. In preparation for , the baby's head has settled deep into your pelvis. ?? Last Reviewed Date: 2020 ?? [id number] [employer]. All rights reserved. This information is not intended as a substitute for professional medical care. Always follow your healthcare professional's instructions. ?? * Angelina HOUGH-Kami BABIN: PERFORM Event Display: Patient Education Leaflets Authored Date: [id number] Labor and Childbirth: Active Labor ?? [address] Labor and Childbirth: Active Labor During active labor, your contractions will be stronger and more rhythmic than with early labor. They peak and subside like waves. They may happen??2 to??3 minutes apart and last about 45 to 60 seconds. This part of labor can be hard work. But it is often shorter than early labor. When you reach active labor, exams and tests will be done to see how you and your baby are doing. During labor, the cervix begins to efface (thin) and dilate (open). Evaluating you and your baby An exam tells how you and your baby are responding to contractions. Your blood pressure, temperature, and pulse will be checked. A blood or urine sample may also be taken. A monitor will be used to check your baby???s heart rate. Sometimes an IV (intravenous) line is started to give you medicine and fluids. ?? Moving ahead with labor You may now feel contractions in??your whole stomach instead of just the lower part (like during early labor). If your amniotic sac has not broken already, it may break now. Or it may be broken for you. To help your baby descend, change position often. Walking or sitting in a rocking chair or recliner may help. You may find it hard to relax even though you are tired. You may also be less interested in talking than you were earlier. If you???re having anesthesia, you may want to get it now.? Special issues during labor If labor doesn???t progress well or a problem arises, you may need a .??But your healthcareproviders may??take certain steps to help you avoid a : ??? If your cervix isn???t dilating, a medicine (oxytocin)??may be used to augment labor. ??? If monitoring shows your baby isn???t getting enough oxygen, shifting your body position may help. You may also be given oxygen througha mask. ??? If you have preeclampsia (a condition that results in high blood pressure, swelling, and other symptoms), you may be given medicines by IV (intravenous). Your healthcare provider may alsotell you to lie on your left side. ?? Responding to contractions During contractions, try to stay relaxed. Tense muscles use more oxygen, eat up your body???s energy, and increase pain. Use the breathing and relaxation techniques you may have learned. And let yoursupport person know how he or she can help. If you???ve had problems during a previous , focuson the present. Keep in mind that no 2 births are the same. ?? Support person???s note Here's how you can help: ??? Have the mother walk or change positions at least once an hour. This improves circulation and helps the baby descend. ??? Keep reminding the mother to breathe and relax through each contraction. ??? Reassure her. Try to keep her from getting anxious or overstressed. ???Take care of yourself. Take a short break to eat or go to the bathroom when you need to. ??? Rest when the mother does. You???ll both benefit. ?? Last Reviewed Date: 2020 ?? [id number] [employer]. All rights reserved. This information is not intended as a substitute for professional medical care. Always follow your healthcare professional's instructions. ?? Patient Care team information Care Team Personnel Name: Darwin WHIPPLE, Ruthie Dhaliwal Position: [facility] Associate Professional Member Role: Primary Care Nurse Address: Address: [address] [place] [id number]- Name: Cindi Richard NP Position: [facility] Outreach Member Role: PCP Address: Address: [address] [place] [id number]- Name: Rosanna Logan RN Position: [facility] RN Member Role: Primary Care Nurse Name: Lonny Meraz RN Position: [facility] RN Member Role: Primary Care Nurse Care Team Related Persons Name: GENO ROSENBERG Address: [address] [address] Name: MARIA C CHAVEZ Address: home [address] [place] [address] Name: LEWIS CHAVEZ Address: [employer] Address: home [address] [place] [address] [place] Name: SILVINA CHAVEZ Address: [employer] Address: home [address] [address]
--- OUTSIDE RECORDS SUMMARY | 2022-11-16 08:17 | XMS_ITS | Continuity of Care Document ---
Author Name Unknown [facility] Address [address] [place] [address]- Care Team Providers Care Pediatric Nurse Name Role Phone Not on Staff, PCP Primary Care Physician Unavail able Encounter [facility] NBR [id number] Date(s): 10/31/20 - [facility] [address] [place] [address]- [place] Allergies, Adverse Reactions, Alerts Substance Reaction [...] 3 Refills, Maintenance, 11/26/20 13:01:00 EDT, Tablet, [facility], Partial fill upon patient request if the prescription is for a schedule II opioid drug.... Start Date: 11/26/20 Status: Ordered MetFORMIN (Eqv-Glucophage XR) 500 mg oral tablet, extended release 1 tablet = 500 mg, By Mouth, 2 times a day, # 60 tablet, 11 Refills, Maintenance, 08/13/20 14:05:00EDT, ER Tablet, [facility]/pharmacy #[id number], 160.02, cm, 08/13/20 13:47:00 EDT, Height, 118.18, kg, 01/18/2017:02:00 EST, Dry Weight Start Date: 08/13/20 Stop Date: 08/08/21 Status: Ordered Ovidrel 250 mcg/0.5 mL subcutaneous solution = 250 mcg, Subcutaneous Injection, Once, Inject when directed, # 2 each, 3 Refills, Soft Stop, 11/30/20 11:02:00 EDT, Solution, [facility], Partial fill upon patient request [...] 11/26/20 13:04:00 EDT, Route to Pharmacy Electronically, [facility], Partial fill upon patientrequest [...]
--- OUTSIDE RECORDS SUMMARY | 2022-11-16 08:17 | XMS_ITS | Continuity of Care Document ---
Author Name Unknown Organization [facility] Address [address] [place] [address]- Care Team Providers Care Credit Card Analyst Name Role Phone Not on Staff, PCP Primary Care Physician Unavail able En[place] [facility] [place] Date(s): 10/19/20 - 11/18/20 [facility] [address] [place] [address]- Allergies, Adverse Reactions, Alerts Substance Reaction Severity [...] Soft Stop, 07/26/20 12:23:00 EDT, Tablet, [facility]/pharmacy #[id number], Partial fill upon patient request if the [...]
--- OUTSIDE RECORDS SUMMARY | 2022-11-16 08:17 | XMS_ITS | Continuity of Care Document ---
Author Name Unknown Organization [facility] Address [address] [place] [address]- Care Team Providers Care Grain Thresher Name Role Phone Not on Staff, PCP Primary Care Physician Unavail able [place] [facility] [place] Date[place]s): 08/17/21 - 09/16/21 [facility] [address] [place] [email or web address] Allergies, Adverse Reactions, Alerts Substance Reaction Severity [...] Maintenance,03/14/21 15:54:00 EST, Route to Pharmacy Electronically, [facility]/pharmacy #[id number], Partial fill upon patient request if the prescription is for a schedule II... Start Date: 03/14/21 Status: Ordered MetFORMIN (Eqv-Glucophage XR) 500 mg oral tablet, extended release 1 tablet, By Mouth, 2 times a day, # 180 tablet, 0 Refills, [id number], 160, cm, 08/20/21 18:31:00 EDT, Height, 118.18, [...]
--- OUTSIDE RECORDS SUMMARY | 2022-11-16 08:17 | XMS_ITS | Continuity of Care Document ---
Author Name Unknown Organization [facility] Address [address] [place] [address]- Care Team Providers Care Sweeping Compound Blender Name Role Phone Vikram CHOI, Lonny Osborne Primary Care Physician Encounter [facility] R [id number] Date(s): 07/26/20 - 08/02/20 [facility] [address] [place] [address]- Attending Physician: Wendy Pretty MD Referring Physician: Sosa Rivas MD Allergies, [...] Soft Stop, 07/26/20 12:23:00 EDT, Tablet, [id number], Partial fill upon patient request if the [...]
--- OUTSIDE RECORDS SUMMARY | 2022-11-16 08:17 | XMS_ITS | Continuity of Care Document ---
Author Name Unknown Organization [facility] Address [address] [place] [id number]- Care Team Providers Care Fish Header Name Role Phone Vikram CHOI, Lonny Osborne Primary Care Physician [phone] Encounter [facility] Date(s): 07/18/21 - 08/17/[facility] [address] [place] [id number] Allergies, Adverse Reactions, Alerts [...] Maintenance,03/14/21 15:54:00 EST, Route to Pharmacy Electronically, [facility]/pharmacy #[id number], Partial fill upon patient request if the prescription is for a schedule II... Start Date: 03/14/21 Status: Ordered MetFORMIN (Eqv-Glucophage XR) 500 mg oral tablet, extended release 1 tablet = 500 mg, By Mouth, 2 times a day, # 60 tablet, 11 Refills, Maintenance, 08/13/20 14:05:00EDT, ER Tablet, [facility]/pharmacy #[id number], 160.02, cm, 08/13/20 13:47:00 [...]
--- OUTSIDE RECORDS SUMMARY | 2022-11-16 08:17 | XMS_ITS | Continuity of Care Document ---
Author Name Unknown Organization [facility] Address Unknown Care Team Providers Care Restaurant Hourly Manager Name Role Phone Vikram CHOI, Lonny Osborne Primary Care Physician [place] [facility] [place] 12[place]27[place]20 - 01/26/21 [facility] Allergies, Adverse Reactions, Alerts Substance [...] 3 Refills, Maintenance, 11/26/20 13:01:00 EDT, Tablet, [facility], Partial fill upon patient request if the prescription is for a schedule II opioid drug.... Start Date: 11/26/20 Status: Ordered MetFORMIN (Eqv-Glucophage XR) 500 mg oral tablet, extended release 1 tablet = 500 mg, By Mouth, 2 times a day, # 60 tablet, 11 Refills, Maintenance, 08/13/20 14:05:00EDT, ER Tablet, [facility]/pharmacy #[id number], 160.02, cm, 08/13/20 13:47:00 EDT, Height, 118.18, kg, 01/18/2017:02:00 EST, Dry Weight Start Date: 08/13/20 Stop Date: 08/08/21 Status: Ordered Ovidrel 250 mcg/0.5 mL subcutaneous solution = 250 mcg, Subcutaneous Injection, Once, Inject when directed, # 2 each, 3 Refills, Soft Stop, 11/30/20 11:02:00 EDT, Solution, [facility], Partial fill upon patient request if the prescription is for a schedule II opioid drug., 160.02, cm... Start Date: 11/30/20 Status: Ordered Pregnyl 83504 u injectable powder for injection See Instructions, 10,000 units subcutaneously Once, # 1 kit, 3 Refills, Maintenance, 12/01/20 9:40:00 EDT, Powder, [facility], Partial fill upon patient request [...] 11/26/20 13:04:00 EDT, Route to Pharmacy Electronically, [facility], Partial fill upon patientrequest if [...]
--- OUTSIDE RECORDS SUMMARY | 2022-11-16 08:17 | XMS_ITS | Continuity of Care Document ---
Author Name Unknown Organization [facility] Address [address] [place] [address]- Care Team Providers Care Global Upstream Marketing Manager Name Role Phone Not on Staff, PCP Primary Care Physician Unavail able Encounter [facility] Date(s): 09/28/20 - 10/28/20 [facility] [address] [place] [address]- Attending Physician: Admtr, Jennifer Admitting Physician: Admtr, [...] Refills, Soft Stop, 07/26/20 12:23:00 EDT, Tablet, [facility]/pharmacy #[id number], Partial fill upon patient request if the [...]
--- OUTSIDE RECORDS SUMMARY | 2022-11-16 08:17 | XMS_ITS | Continuity of Care Document ---
Author Name Unknown Organization [facility] Address [address] [place] [address]- Care Team Providers Care Lead Designer Name Role Phone Not on Staff, PCP Primary Care Physician Unavail able Encounter [facility] [place] Date(s): 08/29/21 - 09/28/21 [facility] [address] [place] [id number] Allergies, Adverse Reactions, Alerts Substance Reaction [...] Route to Pharmacy Electronically, [facility]/pharmacy #[id number], Partial fill upon patient request if the prescription is for a schedule II... Start Date: 03/14/21 Status: Ordered MetFORMIN (Eqv-Glucophage XR) 500 mg oral tablet, extended release 1 tablet, By Mouth, 2 times a day, # 180 tablet, 0 Refills, [id number], 160, cm, 08/20/21 18:31:00 EDT, Height, 118.18, [...]
--- OUTSIDE RECORDS SUMMARY | 2022-11-16 08:17 | XMS_ITS | Continuity of Care Document ---
Author Name Unknown Organization [facility] Address [address] [place] [address]- Care Team Providers Care Aircraft Charter Dispatcher Name Role Phone Vikram CHOI, Lonny Osborne Primary Care Physician [place] [facility] [place] 05/[place]21 [facility] [address] [place] [id number] Allergies, Adverse Reactions, Alerts Substance Reaction Severity [...] Maintenance,03/14/21 15:54:00 EST, Route to Pharmacy Electronically, [facility]/pharmacy #[id number], Partial fill upon patient request if the prescription is for a schedule II... Start Date: 03/14/21 Status: Ordered MetFORMIN (Eqv-Glucophage XR) 500 mg oral tablet, extended release 1 tablet = 500 mg, By Mouth, 2 times a day, # 60 tablet, 11 Refills, Maintenance, 08/13/20 14:05:00EDT, ER Tablet, [facility]/pharmacy #[id number], 160.02, cm, 08/13/20 13:47:00 EDT, [...]
--- OUTSIDE RECORDS SUMMARY | 2022-11-16 08:17 | XMS_ITS | Continuity of Care Document ---
Author Name Unknown Organization [facility] Address [address] [place] [address]- Care Team Providers Care Surgical Services Coordinator Name Role Phone Vikram CHOI, Lonny Osborne Primary Care Physician Encounter [facility] Date(s): 07/25/21 - 08/24/[facility] [address] [place] [id number] Allergies, Adverse Reactions, Alerts Substance Reaction [...] Maintenance,03/14/21 15:54:00 EST, Route to Pharmacy Electronically, [facility]/pharmacy #[id number], Partial fill upon patient request if the prescription is for a schedule II... Start Date: 03/14/21 Status: Ordered MetFORMIN (Eqv-Glucophage XR) 500 mg oral tablet, extended release 1 tablet = 500 mg, By Mouth, 2 times a day, # 60 tablet, 11 Refills, Maintenance, 08/13/20 14:05:00EDT, ER Tablet, [facility]/pharmacy #[id number], 160.02, cm, 08/13/20 13:47:00 EDT, Height, 118.18, kg, 01/18/2017:02:00 EST, Dry Weight Start Date: 08/13/20 Stop Date: 08/08/21 Status: Ordered metFORMIN 500 mg oral tablet See Instructions, Take one tablet by mouth with breakfast, one tablet with lunch, and one tablet with afternoon snack, # 90 tablet, 0 Refills, Maintenance, 08/22/21 11:04:00 EDT, [facility]/pharmacy #[id number], Partial fill upon patient request if the prescriptio... Start Date: 08/22/21 Status: Ordered Multivitamins By Mouth, Daily, 0 [...]
--- OUTSIDE RECORDS SUMMARY | 2022-11-16 08:17 | XMS_ITS | Continuity of Care Document ---
Author Name Unknown Organization [facility] Address Unknown Care Team Providers Care Belt Machine Operator Name Role Phone Not on Staff, PCP Primary Care Physician Unavail able Encounter [facility] Date(s): 12/10/20 - 12/17/20 [facility] Attending Physician: Not on [...] 3 Refills, Maintenance, 11/26/20 13:01:00 EDT, Tablet, [facility], Partial fill upon patient request if the prescription is for a schedule II opioid drug.... Start Date: 11/26/20 Status: Ordered MetFORMIN (Eqv-Glucophage XR) 500 mg oral tablet, extended release 1 tablet = 500 mg, By Mouth, 2 times a day, # 60 tablet, 11 Refills, Maintenance, 08/13/20 14:05:00EDT, ER Tablet, [facility]/pharmacy #[id number], 160.02, cm, 08/13/20 13:47:00 EDT, Height, 118.18, kg, 01/18/2017:02:00 EST, Dry Weight Start Date: 08/13/20 Stop Date: 08/08/21 Status: Ordered Ovidrel 250 mcg/0.5 mL subcutaneous solution = 250 mcg, Subcutaneous Injection, Once, Inject when directed, # 2 each, 3 Refills, Soft Stop, 11/30/20 11:02:00 EDT, Solution, [facility], Partial fill upon patient request if the prescription is for a schedule II opioid drug., 160.02, cm... Start Date: 11/30/20 Status: Ordered Pregnyl 36484 u injectable powder for injection See Instructions, 10,000 units subcutaneously Once, # 1 kit, 3 Refills, Maintenance, 12/01/20 9:40:00 EDT, Powder, [facility], Partial fill upon [...] 11/26/20 13:04:00 EDT, Route to Pharmacy Electronically, [facility], Partial fill upon [...]
--- OUTSIDE RECORDS SUMMARY | 2022-11-16 08:17 | XMS_ITS | Continuity of Care Document ---
Author Name Unknown Organization [facility] Address [address] [place] [address]- Care Team Providers Care Swing Type Lathe Operator Name Role Phone Vikram CHOI, Lonny Osborne Primary Care Physician [place] [facility] [place] Date(s): 05/29/21 - 05/29/[address] [id number] Discharge Disposition: A-D/C Home Attending Physician: Francia Curry DO Admitting Physician: Francia Curry DO Referring Physician: Francia Curry DO Allergies, Adverse Reactions, Alerts Substance Reaction Severity [...] Maintenance,03/14/21 15:54:00 EST, Route to Pharmacy Electronically, [facility]/pharmacy #[id number], Partial fill upon patient request if [...] (polycystic ovarian syndrome)(Confirmed) Active Thyroid nodule(Confirmed) Active Vital Signs Most recent to oldest [Reference Range]: 1 Weight 116.8 kg (05/29/21 2:57 PM) Oxygen Saturation [94-100 %] 93 % 1 *L* (05/29/21 3:18 PM) Blood Pressure [90-138/55-84 mm Hg] 103/ 64mm Hg (05/29/21 3:18 PM) Respiratory Rate [16-30 br/min] 18 br/mi n (05/29/21 3:18 PM) Temperature [96.8-100.4 DegF] 98.4 DegF (05/29/21 2:57 PM) Blood pressure sites Arm, right (05/29/21 3:18 PM) Temperature Route Oral (05/29/21 2:57 PM) Weight Obtained Via Standing scale (05/29/21 2:57 PM) 1Result Comment: Dark nail chinese, finger changed Social History Social History Type Response Smoking Status Never (less than 100 in lifetime) entered on: 05/28/18 Sex Female
--- OUTSIDE RECORDS SUMMARY | 2022-11-16 08:17 | XMS_ITS | Continuity of Care Document ---
Author Name Unknown Organization [facility] Address [address] [place] [address]- Care Team Providers Care Dobie Worker Name Role Phone Not on Staff, PCP Primary Care Physician Unavail able Encounter [facility] Date(s): 05/11/21 - 09/08/21 [facility] [address] [place] [id number] Attending Physician: Yana Vaz MD Admitting Physician: Yana Vaz MD Allergies, Adverse Reactions, Alerts Substance Reaction [...] Maintenance,03/14/21 15:54:00 EST, Route to Pharmacy Electronically, [facility]/pharmacy #[id number], Partial fill upon patient request if the prescription is for a schedule II... Start Date: 03/14/21 Status: Ordered MetFORMIN (Eqv-Glucophage XR) 500 mg oral tablet, extended release 1 tablet, By Mouth, 2 times a day, # 180 tablet, 0 Refills, [facility] [id number], 160, cm, 08/20/21 18:31:00 EDT, Height, 118.18, [...]
--- OUTSIDE RECORDS SUMMARY | 2022-11-16 08:17 | XMS_ITS | Continuity of Care Document ---
Author Name Unknown Organization [facility] ter Address [address] [place] [address]- Care Team Providers Care Assembler Type Bar And Segment Name Role Phone Not on Staff, PCP Primary Care Physician Unavail able [facility]counter [facility] Date(s): 09/01/21 - 09/03/[address] [id number] Discharge Disposition: A-D/C Home Attending Physician: Cindi Sanchez MD Admitting Physician: Cindi Sanchez MD Referring Physician: Cindi Sanchez MD Allergies, Adverse Reactions, Alerts Substance Reaction [...] 15:54:00 EST, Route to Pharmacy Electronically, [facility]/pharmacy #[id number], Partial fill upon patient request if the prescription is for a schedule II... Start Date: 03/14/21 Status: Ordered MetFORMIN (Eqv-Glucophage XR) 500 mg oral tablet, extended release 1 tablet, By Mouth, 2 times a day, # 180 tablet, 0 Refills, [id number], 160, cm, 08/20/21 18:31:00 EDT, Height, 118.18, [...] Active Severe obesity(Confirmed) Active Thyroid nodule(Confirmed) Active Vital Signs Most recent to oldest [Reference Range]: 1 2 3 Height 160 cm (09/03/21 9:00 AM) 160 cm (09/03/21 12:02 AM) 160 cm (09/02/21 3:45 PM) Weight 119 kg (09/02/21 2:19 AM) 119 kg (09/01/21 8:30 PM) Oxygen Saturation [94-100 %] 98 % (09/02/21 9:30 AM) 98 % (09/02/21 9:00 AM) 97 % (09/02/21 8:00 AM) Pulse Rate [55-90 bpm] 97 bpm *H* (09/03/21 3:30 PM) 98 bpm *H* (09/03/21 9:00 AM) 97 bpm *H* (09/03/21 12:02 AM) Body Mass Index [18.5-24.99] 46.48 *>HHI* (09/01/21 8:30 PM) Blood Pressure [90-138/55-84 mm Hg] 110/61mm Hg (09/03/21 3:30 PM) 122/74mm Hg (09/03/21 9:00 AM) 115/70mm Hg (09/03/21 12:02 AM) Respiratory Rate [16-30 br/min] 18 br/min (09/03/21 3:30 PM) 18 br/min (09/03/21 9:00 AM) 17 br/min (09/03/21 12:02 AM) Temperature [96.8-100.4 DegF] 97.9 DegF (09/03/21 9:00 AM) 98.5 DegF (09/03/21 12:02 AM) 97.8 DegF (09/02/21 3:45 PM) Mode of Delivery (Oxygen) Room air (09/03/21 3:30 PM) Room air (09/02/21 4:25 AM) Room air (09/02/21 3:00 AM) Blood pressure sites Arm, right (09/03/21 3:30 PM) Arm, right (09/02/21 3:45 PM) Arm, right (09/02/21 10:11 AM) Temperature Route Oral (09/03/21 9:00 AM) Oral (09/03/21 12:02 AM) Oral (09/02/21 3:45 PM) Dry Weight 119 kg (09/01/21 8:30 PM) Weight Obtained Via Patient/family stated (09/02/21 2:19 AM) Patient/family stated (09/01/21 8:30 PM) Social History Social History Type Response Smoking Status Never (less than 100 in lifetime) entered on: 05/28/18 Sex Female
--- OUTSIDE RECORDS SUMMARY | 2022-11-16 08:18 | XMS_ITS | Continuity of Care Document ---
Author Name Unknown Organization [facility] Address [address] [place] [address]- Care Team Providers Care Gluer Machine Operator Name Role Phone Lonny Sue MD Primary Care Physician [phone] Encounter [facility] [place] Date(s): 10/02/20 - 01/30/21 [facility] [address] [place] [id number] Attending Physician: Will Landon MD Admitting Physician: Will Landon MD Referring Physician: Lonny Sue MD Allergies, Adverse Reactions, Alerts Substance Reaction [...] 3 Refills, Maintenance, 11/26/20 13:01:00 EDT, Tablet, [facility], Partial fill upon patient [...] Refills, Soft Stop, 11/30/20 11:02:00 EDT, Solution, [facility], Partial fill upon patient request if the prescription is for a schedule II opioid drug., 160.02, cm... Start Date: 11/30/20 Status: Ordered Pregnyl 52708 u injectable powder for injection See Instructions, 10,000 units subcutaneously Once, # 1 kit, 3 Refills, Maintenance, 12/01/20 9:40:00 EDT, Powder, [facility], Partial fill upon patient [...] 11/26/20 13:04:00 EDT, Route to Pharmacy Electronically, [facility], Partial fill upon patientrequest [...]
--- NOTE | 2022-11-16 10:19 | MHC.OFFVISWM ---
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 BMI 47.8 Allergies amoxicillin [AMOXICILLIN] Allergy (Unknown, Verified 11/16/22 10:19) RASH/SWELLING, rash cephalexin Allergy (Unknown, Verified 11/16/22 10:19) rash doxycycline Allergy (Unknown, Verified 11/16/22 10:19) rash penicillin V Allergy (Unknown, Verified 11/16/22 10:19) rash Penicillins [PENICILLINS] Allergy (Unknown, Verified 11/16/22 10:19) RASH/SWELLING Medication List - Last Reconciled 11/16/22 by Scotty Baez MD albuterol sulfate 90 mcg/actuation 1 puff inhalation QID sertraline 100 mg PO DAILY sertraline 50 mg PO DAILY HPI 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 popcorn) Exercise: none Fluids: Coffee 8oz x4/d (cream and sugar), tea: green tea <1/wk, juice: none, Soda: none, ETOH: none PFSH Medical History (Updated 11/16/22 @ 10:22 by Scotty Baez MD) Asthma Gestational diabetes Anxiety Depression Morbid obesity Surgical History (Updated 11/16/22 @ 10:22 by Scotty Baez MD) History of tonsillectomy Assessment & Plan Assessment & Plan (1) Morbid obesity: Code(s): E66.01 - Morbid (severe) obesity due to excess calories Plan: 1.? Plan for lap sleeve gastrectomy. If diaphragmatic or ventral hernias are present at time of surgery, these will be repaired laparoscopically as well. Risks and complications were discussed in detail including possible conversion to an open procedure, anastomotic leak, bleeding requiring transfusion, small bowel obstruction, , DVT and pulmonary embolism, cardiac, or pulmonary complications, as filler shredding machine loader complications such as anastomotic ulcer, insufficient weight loss and vitamin deficiencies. I emphasized the importance of close follow-up, adherence to instructions and good communication. 2. Nutritional counseling. Start with 2 CELEBRATE REBUILD protein (buy at [facility] [employer]) shakes (ONE scoop EACH in 8oz low fat unsweetened almond milk each) at 7am-9am and 10am-12pm, 2 protein bars (CELEBRATE protein bars, buy at [facility] [employer]) at 1pm-3pm and 4pm-6pm, dinner at 7pm (10 forks of protein and 10 forks of salad/vegetables) AND one more protein bar after dinner at 9pm-11pm. So you do 2 protein shakes, 3 protein bars and one meal per day. Meal to include lean meat (beef, fish, pork, turkey, chicken), or french yogurt, or egg whites, or beans with a salad with olive oil and fruits (berries, pears, apples, kiwi). Avoid salt, breads, potatoes, rice, pasta, desserts. 3. Each shake would be drunk slowly, like coffee in a period of 2 hours. May add your coffee into your shakes, if flavor match. 4. Cut each bar in 4 pieces and eat each piece in 30min ?to make each bar last 2 hours. 5. I emphasized the importance of measuring accurately the food portion and measure it when serving the food in plate 6. The meal portions include 10 full-size forks of meat and 10 full-size forks of salad. You always eat the meat portion but you can replace up to 5 forks for salad/vegetables with rice, potatoes or pasta, or a fruit ?if you like. The less you do it the better weight loss will be. 7. One full-size fork is what it can be scooped on the fork without falling aside and not what can be bit with the fork. Use regular forks like those you find in a typical restaurant. 8.? Please send me weight measurements as soon as possible and then once a week. Always include your diet and exercise plan. Alternatively come weekly at the office for weight checks and send me the measurements. 9. Start walking outside daily, tracking calories with a goal of 300 calories per day, daily. Goal is to burn 2000 calories per week on exercise, which means either 300 calories daily, or 400 calories 5 days per week, or 500 calories 4 days per week, or 650 calories 3 days per week. 10. Alternatively purchase a stationary bike, elliptical or treadmill at home that can track calories. Let me know if you do so I can give you an exercise plan. 11.?It is important of avoiding and for at least 18 months postoperatively and has been discussed at the infosession. 12. Goal is to lose at least 1.5-2lbs per week 13. Goal to lose 10% of your weight before surgery, which is about 27lbs. Ultimate weight goal: 246lbs before surgery 14. Please follow the diet plan exactly without any change. If you don't like something about the plan or you feel hungry you need to communicate with me so I can help you revise the plan. You should not change the plan yourself. (2) Asthma: Code(s): J45.909 - Unspecified asthma, uncomplicated Orders: Orders Insulin Today E66.01 - Morbid (severe) obesity due to excess calories, J45.909 - Unspecified asthma, uncomplicated Comprehensive Met. Panel Today E66.01 - Morbid (severe) obesity due to excess calories, J45.909 - Unspecified asthma, uncomplicated Vitamin B1 Today E66.01 - Morbid (severe) obesity due to excess calories, J45.909 - Unspecified asthma, uncomplicated Vitamin A Today E66.01 - Morbid (severe) obesity due to excess calories, J45.909 - Unspecified asthma, uncomplicated PTHI Today E66.01 - Morbid (severe) obesity due to excess calories, J45.909 - Unspecified asthma, uncomplicated Vitamin D 25-OH Total Today E66.01 - Morbid (severe) obesity due to excess calories, J45.909 - Unspecified asthma, uncomplicated US abdomen comp w elastography Today E66.01 - Morbid (severe) obesity due to excess calories, J45.909 - Unspecified asthma, uncomplicated XR chest 2V Today E66.01 - Morbid (severe) obesity due to excess calories, J45.909 - Unspecified asthma, uncomplicated Lipid Panel Today E66.01 - Morbid (severe) obesity due to excess calories, J45.909 - Unspecified asthma, uncomplicated IRON PROFILE Today E66.01 - Morbid (severe) obesity due to excess calories, J45.909 - Unspecified asthma, uncomplicated Complete Blood Count Auto Diff Today E66.01 - Morbid (severe) obesity due to excess calories, J45.909 - Unspecified asthma, uncomplicated Vitamin B12 and Folate Today E66.01 - Morbid (severe) obesity due to excess calories, J45.909 - Unspecified asthma, uncomplicated Zinc Today E66.01 - Morbid (severe) obesity due to excess calories, J45.909 - Unspecified asthma, uncomplicated C Reactive Protein Today E66.01 - Morbid (severe) obesity due to excess calories, J45.909 - Unspecified asthma, uncomplicated Ferritin Today E66.01 - Morbid (severe) obesity due to excess calories, J45.909 - Unspecified asthma, uncomplicated TSH reflex Free T4 Today E66.01 - Morbid (severe) obesity due to excess calories, J45.909 - Unspecified asthma, uncomplicated H Pylori Breath Test Today E66.01 - Morbid (severe) obesity due to excess calories, J45.909 - Unspecified asthma, uncomplicated Hemoglobin A1c Today E66.01 - Morbid (severe) obesity due to excess calories, J45.909 - Unspecified asthma, uncomplicated ECG 12 lead EKG Today E66.01 - Morbid (severe) obesity due to excess calories, J45.909 - Unspecified asthma, uncomplicated FL upper GI w air Today E66.01 - Morbid (severe) obesity due to excess calories, J45.909 - Unspecified asthma, uncomplicated Referrals Behavioral Health Referral E66.01 - Morbid (severe) obesity due to excess calories, J45.909 - Unspecified asthma, uncomplicated Nutrition/Dietitian Referral E66.01 - Morbid (severe) obesity due to excess calories, J45.909 - Unspecified asthma, uncomplicated Telehealth Telehealth Location of provider rendering services: practice address Location of patient: address on file Patient Identification confirmed using: Name, : Yes Telehealth method: voice only Patient verbally consented to treatment: Yes Patient verbally consented to billing insurance company: Yes Patient informed of any privacy concerns related to visit: Yes Minutes spent on Phone/Video with Pt.: 45 Coding Level of Care Code Tele New Pt Level 4 (82205) Diagnoses Morbid obesity E66.01 Asthma J45.909 Time Spent (min) 45
[2022-11-16 10:29] VITALS: BMI 47.7
== END 2022-11-16 10:58 | disposition home or self-care (01) ==
LOC: HO.HBS 08:13
PROVIDERS: Visit Provider Surgery
DX: E66.01 Morbid (severe) obesity due to excess calories (principal); J45.909 Unspecified asthma, uncomplicated; Z68.42 Body mass index [BMI] 45.0-49.9, adult
CPT/HCPCS: 99443

== ENCOUNTER → 2022-11-16 08:13 | Outpatient (BNVA) | payer BC, MEDICAID, SELFPAY | PROVIDERS: Visit Provider Surgery ==

== ENCOUNTER 2022-11-17 09:04 | Outpatient (REF) | payer BC, MEDICAID, SELFPAY ==
[2022-11-17 09:19] LABS: MANUAL DIFF FLAG NO
[2022-11-17 09:46] LABS: Basophils Percent Auto 0.6 % (0-2); Eosinophils Absolute Auto 0.1 X10*3/uL (0.0-0.4); Eosinophils Percent Auto 1.7 % (0-4); Hematocrit 40.5 % (37.0-47.0); Hemoglobin 12.4 g/dl (12.0-16.0); Lymphocytes Absolute Auto 2.5 X10*3/uL (1.2-4.9); Lymphocytes Percent Auto 47.7 % (20-40); Mean Corpuscular HGB Conc 30.6 g/dl (31.0-35.0); Mean Corpuscular Hemoglobin 23.9 pg (27.0-33.0); Monocytes Absolute Auto 0.4 X10*3/uL (0.1-1.2); Monocytes Percent Auto 7.2 % (2-11); Neutrophils Absolute Auto 2.3 x10*3/uL (2.0-8.3); Neutrophils Percent Auto 42.8 % (45-73); Platelet Count 277 X10*3/uL (160-400); Red Blood Count 5.19 X10*6/uL (4.20-5.50); Red Cell Distribution Width 13.8 % (11.0-16.0); White Blood Count 5.3 X10*3/uL (4.8-10.8)
[2022-11-17 10:37] LABS: Alanine Aminotransferase 14 U/L (0-31); Albumin Level 4.2 g/dL (3.5-5.0); Alkaline Phosphatase 100 U/L (39-117); Anion Gap 13 (12-20); Aspartate Amino Transferase 16 U/L (5-31); Bilirubin Total 0.4 mg/dL (0.0-1.0); Blood Urea Nitrogen 17 mg/dL (9-16); C Reactive Protein 0.32 mg/dL (< or = 0.50); Carbon Dioxide 24 mmol/L (22-29); Chloride 107 mmol/L (96-108); Cholesterol 132 mg/dL (<200); Estimated Glomerular Filt Rate > 60; Glucose Random 83 mg/dL (60-115); HDL Cholesterol 43 mg/dL (>40); Iron 32 mcg/dL (30-160); LDL Cholesterol Calculated 67 mg/dL (<100); Percent Iron Saturation 8 % (15-50); Potassium 4.6 mmol/L (3.3-5.1); Sodium 139 mmol/L (135-145); Total Iron Binding Capacity 383 mcg/dL (228-428); Total Protein 7.1 g/dL (6.5-8.0); Triglycerides 112 mg/dL (<150); Unsaturated Iron Binding 351 ug/dL
[2022-11-17 10:58] LABS: Ferritin 12 ng/mL (10-122); Insulin 15 uU/mL (2-29); TSH reflex Free T4 0.63 uIU/mL (0.32-4.0); Vitamin D 25-OH Total 27.1 ng/mL (>30)
[2022-11-22 15:44] LABS: Vitamin A 50 mcg/dL (38-98)
[2022-11-23 13:58] LABS: Vitamin B1 15 nmol/L (8-30)
== END 2022-11-17 09:05 | disposition home or self-care (01) ==
LOC: HO.LAB 09:04
PROVIDERS: PCP Registered Nurse; Visit Provider Surgery
DX: E66.01 Morbid (severe) obesity due to excess calories (principal); J45.909 Unspecified asthma, uncomplicated
CPT/HCPCS: 36415; 71046; 80053; 80061; 82306; 82607; 82728; 82746; 83036; 83525; 83540; 83970; 84425; 84443; 84590; 84630; 85025; 86140; 93005

== ENCOUNTER → 2022-11-24 10:13 | Outpatient (BNVA) | payer BC, MEDICAID, SELFPAY | PROVIDERS: PCP Registered Nurse; Visit Provider Physician Assistant Surgical | DX: Z11.0 Encounter for screening for intestinal infectious diseases (principal) | CPT/HCPCS: 99211 ==

== ENCOUNTER 2022-11-24 14:14 | Outpatient (REF) | payer BC, MEDICAID, SELFPAY ==
[2022-11-26 15:19] LABS: H Pylori Breath Test Negative (Negative)
== END 2022-11-24 14:15 | disposition home or self-care (01) ==
LOC: HO.LNP 14:14
PROVIDERS: Surgery; Visit Provider Physician Assistant Surgical
DX: E66.01 Morbid (severe) obesity due to excess calories (principal); J45.909 Unspecified asthma, uncomplicated
CPT/HCPCS: 83013

== ENCOUNTER 2022-12-15 08:03 | Outpatient (AMB) | payer BC, MEDICAID, SELFPAY ==
--- OUTSIDE RECORDS SUMMARY | 2022-12-15 08:04 | XMS_ITS | Patient Health Record ---
Author Name Unknown Organization [facility], [facility] Address [address] [place] [id number] Care Team Providers Care Automatic Typewriter Inspector Name Role Phone PEG CENTENO Primary Care Provider Sonya Severino Unavailable [phone] Migration, Provider Unavailable Unavailable REASON FOR REFERRAL [...] HFA 90 mcg/actuation aerosol inhaler *Reorder from [employer] for eRx and Interaction Alerts* 10/31/2021 Active SOCIAL HISTORY Sex Assigned At : Social History Observation Description Sex Assigned At Unknown VITAL SIGNS Heart Rate 95.0 /min 02/14/2022 Temperature 96.8 degrees Fahrenheit 02/14/2022 Height-cm 160.02 cm 02/14/2022 Oximetry 99.0 % 02/14/2022 Blood pressure diastolic 62.0 mm Hg 02/14/2022 Weight-kg 113.04 kg 02/14/2022 Height 63 in 02/14/2022 Blood pressure systolic 114.0 mm Hg 02/14/2022 Weight 249.211 lbs 02/14/2022 BMI 44.15 kg/m2 02/14/2022 Encounters Encounter Location Date Provider Diagnosis [address] [address] 01/04/2022 Sonya Severino [place] [address] [place] [address] 02/02/2022 Sonya Severino [facility], [address] [place] [address] 02/14/2022 Sonya Severino [facility], [address] [place] [address] 03/02/2022 Sonya [facility], [address] [place] [address] 02/18/2022 Provider Migration [facility], [address] [place] [address] 02/19/2022 Provider Migration [facility], [address] [place] [address] 06/06/2022 Sonya Severino [address] [place] [address] 06/22/2022 PEG CENTENO PLAN OF TREATMENT Next Appt Details Provider Name:Sonya Severino, 02/15/2023 10:45:00 AM, [address] [place] [address], [phone], Insurance Providers Payer Name Payer Address Payer Phone Subscriber Number Group Number Insured Name Patient Relationship to Insured Coverage Start Date Coverage End Date ANTHEM [address] [place] [phone] [phone] [id number] Piyush Nesbitt Unknown - patient's relationship to the insured is other than any listed [place] [address] [place] [address] [phone] [id number] DIONI NESBITT Self - patient is the insured
--- NOTE | 2022-12-15 08:10 | A.OFFVIS_ITS ---
Intake VS Expanded 12/15/22 08:20 Height 5 ft 3.5 in Weight 262 lb 8 oz BMI 45.8 Body Fat % 61 Body Fat Mass 160.3 Fat Free Mass 102.6 Visceral Fat Rating 27 Body Water % 26.8 Body Water Mass 70.4 Basal Metabolic Rate/Score 1,374 Intake Visit Reasons: TV Follow Up SWL - Allergies amoxicillin [AMOXICILLIN] Allergy (Unknown, Verified 11/16/22 10:19) RASH/SWELLING, rash cephalexin Allergy (Unknown, Verified 11/16/22 10:19) rash doxycycline Allergy (Unknown, Verified 11/16/22 10:19) rash penicillin V Allergy (Unknown, Verified 11/16/22 10:19) rash Penicillins [PENICILLINS] Allergy (Unknown, Verified 11/16/22 10:19) RASH/SWELLING HPI TV Follow Up SW HPI Details Start time: 8.02am, End time: 8.26am ?I spent 19 minutes speaking with the patient on the phone plus an additional 5 minutes reviewing and updating records for a total of 24 minutes HPI Comments History of Present Illness Details Overall weight loss: 11lbs, or 4.02% TBWL Is doing 2 Celebrate Rebuild (1 scoop each in almond milk) shakes, 3 Celebrate protein bars, dinner (10 forkfuls of protein and 10 forkfuls of salad or vegetables) Exercise: You tube exercise videos and walking outside 4 days per week [facility] Medical History (Updated 11/24/22 @ 12:04 by Scotty Baez MD) Asthma Gestational diabetes Anxiety Depression Morbid obesity Surgical History (Updated 11/16/22 @ 10:22 by Scotty Baez MD) History of tonsillectomy Assessment & Plan Assessment & Plan (1) Morbid obesity: Code(s): E66.01 - Morbid (severe) obesity due to excess calories Plan: 1. Continue same nutritional plan of 2 Celebrate Rebuild (1 scoop each in almond milk) shakes, 3 Celebrate protein bars, dinner (10 forkfuls of protein and 10 forkfuls of salad or vegetables) 2. Exercise: Continue You tube exercise videos and walking outside 4 days per week 3. Please purchase a stationary bike, elliptical or treadmill at home that can track calories. Let me know if you do so I can give you an exercise plan. 4. Continue to send me weight measurements weekly on Fridays Telehealth Telehealth Location of provider rendering services: practice address Location of patient: address on file Patient Identification confirmed using: Name, : Yes Telehealth method: voice only Patient verbally consented to treatment: Yes Patient verbally consented to billing insurance company: Yes Patient informed of any privacy concerns related to visit: Yes Minutes spent on Phone/Video with Pt.: 24 Coding Level of Care Code Tele Est Pt Level 3 (73833) Diagnoses Morbid obesity E66.01 Time Spent (min) 24
[2022-12-15 08:20] VITALS: BMI 45.8
== END 2022-12-15 08:27 | disposition home or self-care (01) ==
LOC: HO.HBS 08:03
PROVIDERS: PCP Registered Nurse; Visit Provider Surgery
DX: E66.01 Morbid (severe) obesity due to excess calories (principal); Z68.42 Body mass index [BMI] 45.0-49.9, adult
CPT/HCPCS: 99443

== ENCOUNTER → 2022-12-15 08:03 | Outpatient (BNVA) | payer BC, MEDICAID, SELFPAY | PROVIDERS: PCP Registered Nurse; Visit Provider Surgery ==

== ENCOUNTER 2023-01-10 13:02 | Outpatient (AMB) | payer BC, MEDICAID, SELFPAY ==
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
--- OUTSIDE RECORDS SUMMARY | 2023-01-10 13:04 | XMS_ITS | Patient Health Record ---
Author Name Unknown Organization [facility], [facility] Address [address] [place] [phone] Care Team Providers Care Industrial Sales Engineer Name Role Phone PEG CENTENO Primary Care Provider Sonya Severino Unavailable [phone] Migration, Provider Unavailable Unavailable REASON FOR REFERRAL [...] HFA 90 mcg/actuation aerosol inhaler *Reorder from [employer] for eRx and Interaction Alerts* 10/31/2021 Active [...] 02/14/2022 Encounters Encounter Location Date Provider Diagnosis [address] [place] [id number] 02/02/2022 Sonya Severino [address] [place] [id number] 02/14/2022 Sonya Severino [address] [place] [id number] 03/02/2022 Sonya Severino [facility], [address] [place] [id number] 02/18/2022 Provider Migration [address] [place] [id number] 02/19/2022 Provider Migration [address] [place] [id number] 06/06/2022 Sonya Severino [address] [place] [id number] 06/22/2022 PEG CENTENO PLAN OF TREATMENT Next Appt Details Provider Name:Sonya Severino, 02/15/2023 10:45:00 AM, [address] [place], [place] [address], [id number], Insurance Providers Payer Name Payer Address Payer Phone Subscriber Number Group Number Insured Name Patient Relationship to Insured Coverage Start Date Coverage End Date ANTHEM [address] [place] [phone] [id number] Piyush Nesbitt Unknown - patient's relationship to the insured is other than any listed [place] [address] [place] [address] [phone] [id number] DIONI NESBITT Self - patient is the insured
== END 2023-01-10 13:10 | disposition home or self-care (01) ==
LOC: HO.HBST 13:02
PROVIDERS: PCP Registered Nurse; Visit Provider Counselor Mental Health
DX: F32.A Depression, unspecified (principal); E66.01 Morbid (severe) obesity due to excess calories
CPT/HCPCS: 90791

== ENCOUNTER → 2023-01-10 13:02 | Outpatient (BNVA) | payer BC, MEDICAID, SELFPAY | PROVIDERS: PCP Registered Nurse; Visit Provider Counselor Mental Health ==

== ENCOUNTER 2023-01-11 13:15 | Outpatient (AMB) | payer BC, MEDICAID, SELFPAY ==
--- NOTE | 2023-01-11 13:03 | MHC.AMNUTRGE ---
Intake Intake Visit Reasons: VIDEO Initial Nutrition SWL Allergies amoxicillin [AMOXICILLIN] Allergy (Unknown, Verified 11/16/22 10:19) RASH/SWELLING, rash cephalexin Allergy (Unknown, Verified 11/16/22 10:19) rash doxycycline Allergy (Unknown, Verified 11/16/22 10:19) rash penicillin V Allergy (Unknown, Verified 11/16/22 10:19) rash Penicillins [PENICILLINS] Allergy (Unknown, Verified 11/16/22 10:19) RASH/SWELLING HPI Nutrition Presentation Reason for consult elevated BMI Diet Assmnt Details sometimes forgets started working overnights 7pm-7am, is learning to adjust and doing well. She reports her biggest struggle now is finding recipes, mainly meals that her whole family will eat She reported a history of binge eating. As a teenager she would binge and purge however stopped before graduating high school. Also has a history of restrictive/binge cycles. Patient spoke with Umm about this yesterday. [facility] online classes completed, reviewed Dietary counseling reduction Lifestyle Food frequency Grains/pasta/breads/cereal (carbs): daily and Meats/poultry/fish (protein): daily Diagnosis Nutrition problem #1 overweight/obesity As related to (etiology) #1 excess energy intake and physical inactivity As evidenced by (sign/symptom) #1 high BMI Monitoring/Goals Nutrition problem monitoring total energy intake, level of knowledge/skill, total PRO intake, total CHO intake and weight Outcome progress progressing Learning/Education Readiness to learn excellent Stages of change action Educational materials provided Yes Most Recent Diabetes Results: Cholesterol 132 mg/dL (<200) 11/17/22 HDL Cholesterol 43 mg/dL (>40) 11/17/22 Triglycerides 112 mg/dL (<150) 11/17/22 Creatinine 0.78 mg/dL (0.5-1.4) 11/17/22 Blood Urea Nitrogen 17 mg/dL (9-16) H 11/17/22 Sodium 139 mmol/L (135-145) 11/17/22 Potassium 4.6 mmol/L (3.3-5.1) 11/17/22 Chloride 107 mmol/L (96-108) 11/17/22 Carbon Dioxide 24 mmol/L (22-29) 11/17/22 Calcium 9.0 mg/dL (8.4-10.2) 11/17/22 AST 16 U/L (5-31) 11/17/22 ALT 14 U/L (0-31) 11/17/22 Total Protein 7.1 g/dL (6.5-8.0) 11/17/22 Albumin 4.2 g/dL (3.5-5.0) 11/17/22 [facility] Medical History (Updated 11/24/22 @ 12:04 by Scotty Baez MD) Asthma Gestational diabetes Anxiety Depression Morbid obesity Surgical History (Updated 11/16/22 @ 10:22 by Scotty Baez MD) History of tonsillectomy Assessment & Plan Assessment & Plan (1) Morbid obesity: Code(s): E66.01 - Morbid (severe) obesity due to excess calories Plan Patient is cleared from a nutrition standpoint for bariatric surgery.? Patient Instructions: Patient is cleared from a nutrition standpoint for bariatric surgery. Educational requirements have been completed. Reviewed vitamin supplementation and commitment to protein shake for several months post surgery. Encouraged communication with office as needed Telehealth Telehealth Location of provider rendering services: practice address Location of patient: other (car) Patient Identification confirmed using: Name, : Yes Telehealth method: video Patient verbally consented to treatment: Yes Patient verbally consented to billing insurance company: Yes Patient informed of any privacy concerns related to visit: Yes Minutes spent on Phone/Video with Pt.: 25 Coding Level of Care Code Nutr Indiv Intake (38693) Diagnoses Morbid obesity E66.01 Time Spent (min) 25
--- OUTSIDE RECORDS SUMMARY | 2023-01-11 13:17 | XMS_ITS | Patient Health Record ---
Author Name Unknown Organization [facility], [facility] Address [address] [place] [phone] Care Team Providers Care Electronic Assembler Group Leader Name Role Phone PEG CENTENO Primary Care Provider Sonya Severino Unavailable [phone] Migration, Provider Unavailable Unavailable REASON FOR REFERRAL [...] HFA 90 mcg/actuation aerosol inhaler *Reorder from [employer] for eRx and Interaction Alerts* 10/31/2021 Active [...] 02/14/2022 Encounters Encounter Location Date Provider Diagnosis [address] [place] [id number] 02/02/2022 Sonya Severino [address] [place] [id number] 02/14/2022 Sonya Severino [address] [place] [id number] 03/02/2022 Sonya Severino [facility], [address] [place] [id number] 02/18/2022 Provider Migration [address] [place] [id number] 02/19/2022 Provider Migration [address] [place] [id number] 06/06/2022 Sonya Severino [address] [place] [id number] 06/22/2022 PEG CENTENO PLAN OF TREATMENT Next Appt Details Provider Name:Sonya Severino, 02/15/2023 10:45:00 AM, [address] [place], [place] [address], [id number], Insurance Providers Payer Name Payer Address Payer Phone Subscriber Number Group Number Insured Name Patient Relationship to Insured Coverage Start Date Coverage End Date ANTHEM [address] [place] [address] [phone] [id number] Piyush Nesbitt Unknown - patient's relationship to the insured is other than any listed [place] [address] [place] [address] [phone] [id number] DIONI NESBITT Self - patient is the insured
== END 2023-01-11 13:25 | disposition home or self-care (01) ==
LOC: HO.HBS 13:15
PROVIDERS: PCP Registered Nurse; Visit Provider Dietitian, Registered
DX: E66.01 Morbid (severe) obesity due to excess calories (principal)

== ENCOUNTER → 2023-01-11 13:15 | Outpatient (BNVA) | payer BC, MEDICAID, SELFPAY | PROVIDERS: PCP Registered Nurse; Visit Provider Dietitian, Registered | DX: E66.01 Morbid (severe) obesity due to excess calories (principal); Z71.3 Dietary counseling and surveillance | CPT/HCPCS: 97802 ==

== ENCOUNTER 2023-01-12 08:28 | Outpatient (AMB) | payer BC, MEDICAID, SELFPAY ==
--- OUTSIDE RECORDS SUMMARY | 2023-01-12 08:32 | XMS_ITS | Patient Health Record ---
Author Name Unknown Organization [facility], [facility] Address [address] [place] [id number] Care Team Providers Care Janitorial Tech Name Role Phone PEG CENTENO Primary Care Provider Sonya Severino Unavailable [phone] Migration, Provider Unavailable Unavailable REASON FOR REFERRAL [...] HFA 90 mcg/actuation aerosol inhaler *Reorder from TYFFON for eRx and Interaction Alerts* 10/31/2021 Active [...] 02/14/2022 Encounters Encounter Location Date Provider Diagnosis [address] [place] [id number] 02/02/2022 [address]a Severino [address] [place] [id number] 02/14/2022 [address]a Severino [address] [place] [id number] 03/02/2022 Sonya Severino [facility], [address] [place] [id number] 02/18/2022 Provider Migration [address] [place] [id number] 02/19/2022 Provider Migration [address] [place] [id number] 06/06/2022 [address]a Severino [address] [place] [id number] 06/22/2022 PEG CENTENO PLAN OF TREATMENT Next Appt Details Provider Name:Sonya Severino, 02/15/2023 10:45:00 AM, [address] [place], [place] [address], [id number], Insurance Providers Payer Name Payer Address Payer Phone Subscriber Number Group Number Insured Name Patient Relationship to Insured Coverage Start Date Coverage End Date ANTHEM [address] [place] [phone] [id number] Piyush Nesbitt Unknown - patient's relationship to the insured is other than any listed [place] [address] [place] [id number] [phone] [id number] DIONI NESBITT Self - patient is the insured
--- NOTE | 2023-01-12 13:31 | MHC.OFFVISWM ---
Intake VS Expanded 01/12/23 13:46 Height 5 ft 3.5 in Weight 263 lb 4 oz BMI 45.9 Body Fat % 61.2 Body Fat Mass 161.2 Fat Free Mass 102.2 Visceral Fat Rating 27 Body Water % 26.6 Body Water Mass 70 Basal Metabolic Rate/Score 1,371 Intake Visit Reasons: TV Follow Up SWL Allergies amoxicillin [AMOXICILLIN] Allergy (Unknown, Verified 11/16/22 10:19) RASH/SWELLING, rash cephalexin Allergy (Unknown, Verified 11/16/22 10:19) rash doxycycline Allergy (Unknown, Verified 11/16/22 10:19) rash penicillin V Allergy (Unknown, Verified 11/16/22 10:19) rash Penicillins [PENICILLINS] Allergy (Unknown, Verified 11/16/22 10:19) RASH/SWELLING HPI TV Follow Up SWL HPI Details Start time: 1.30pm, End time: 1.51pm ?I spent 16 minutes speaking with the patient on the phone plus an additional 5 minutes reviewing and updating records for a total of 21 minutes HPI Comments History of Present Illness Details Overall weight loss: 10.4lbs, or 3.8% TBWL Is doing one Celebrate Rebuild shake (1 scoop in almond milk), 3 Celebrate protein bars and one meal (2 eggs and 10 forkfuls salad) Exercise: home exercises [facility] Medical History (Updated 11/24/22 @ 12:04 by Scotty Baez MD) Asthma Gestational diabetes Anxiety Depression Morbid obesity Surgical History (Updated 11/16/22 @ 10:22 by Scotty Baez MD) History of tonsillectomy Assessment & Plan Assessment & Plan (1) Morbid obesity: Code(s): E66.01 - Morbid (severe) obesity due to excess calories Plan: 1. Plan for lap sleeve gastrectomy including upper GI endoscopy. All tests has been completed and reviewed and the patient is cleared for the surgery. ?If diaphragmatic or ventral hernias are present at time of surgery, these will be repaired laparoscopically as well. 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 I emphasized the importance of close follow-up, adherence to instructions and good communication. So far she has proven to be an excellent communicator and very compliant with all our directions accomplishing a great weight loss. I believe that she is an excellent candidate and she is ready. 2. Continue same nutritional plan of one Celebrate Rebuild shake (1 scoop in almond milk), 3 Celebrate protein bars and one meal (2 eggs and 10 forkfuls salad) 3. Emphasized the importance purchasing a stationary bike at home 4. In the meantime please walk outside as much as possible for a goal of burning 300 calories per walk 5. Continue to send me weight measurements weekly on Fridays Telehealth Telehealth Location of provider rendering services: practice address Location of patient: address on file Patient Identification confirmed using: Name, : Yes Telehealth method: voice only Patient verbally consented to treatment: Yes Patient verbally consented to billing insurance company: Yes Patient informed of any privacy concerns related to visit: Yes Coding Level of Care Code Tele Est Pt Level 3 (86582) Diagnoses Morbid obesity E66.01 Time Spent (min) 21
[2023-01-12 13:46] VITALS: BMI 45.9
== END 2023-01-12 13:52 | disposition home or self-care (01) ==
LOC: HO.HBS 08:28
PROVIDERS: PCP Registered Nurse; Visit Provider Surgery
DX: E66.01 Morbid (severe) obesity due to excess calories (principal); Z68.42 Body mass index [BMI] 45.0-49.9, adult
CPT/HCPCS: 99443

== ENCOUNTER → 2023-01-12 08:28 | Outpatient (BNVA) | payer BC, MEDICAID, SELFPAY | PROVIDERS: PCP Registered Nurse; Visit Provider Surgery ==

== ENCOUNTER 2023-01-15 09:05 | Outpatient (REF) | payer BC, MEDICAID, SELFPAY ==
--- NOTE | ~2023-01-15 | FL_ITS ---
EXAMINATION: XR FLUOROSCOPY UPPER GI WITH AIR CLINICAL INFORMATION: Preoperative evaluation prior to bariatric surgery COMPARISON: None TECHNIQUE: Fluoroscopic air contrast upper GI examination was performed utilizing standard techniques with thin and thick barium and effervescent granules. Numerous spot images were obtained. FINDINGS: Dual and single contrast images of the esophagus demonstrate normal caliber, contour, and mucosal pattern. No evidence of stricture, mass, or ulcerations identified. Esophageal peristalsis was normal. A small type I hiatal hernia is present. Gastroesophageal reflux is seen up to the thoracic inlet. Dual contrast and single contrast images of the stomach demonstrated normal contour and mucosal pattern without evidence of mass, ulceration, or other abnormality. Contrast freely passed into the gastric antrum and duodenal bulb without delay. Single and air-contrast images of the duodenal bulb demonstrate no abnormality. The duodenal sweep has a normal appearance, course, and mucosal fold appearance. The imaged proximal jejunum has a normal fold pattern and caliber. FLUOROSCOPY TIME: 2 minutes 55 seconds Number of Spot Images: 10 Number of Cine: 6 DOSE AREA PRODUCT: [id number] uGy-m2 (microgray-meter squared) FL/FL upper GI w air IMPRESSION: 1. Small type I hiatal hernia 2. Significant gastroesophageal reflux This procedure was performed by Joshua Prince PA-C, and supervised by Dr. Coronel
== END 2023-01-15 09:06 | disposition home or self-care (01) ==
LOC: HO.XRAY 09:05
PROVIDERS: Visit Provider Surgery
DX: E66.01 Morbid (severe) obesity due to excess calories (principal); J45.909 Unspecified asthma, uncomplicated
CPT/HCPCS: 74246

== ENCOUNTER → 2023-01-15 09:07 | Outpatient (BNV) | payer BC, MEDICAID, SELFPAY | PROVIDERS: Visit Provider Radiology Diagnostic Radiology | DX: E66.01 Morbid (severe) obesity due to excess calories (principal); Z01.818 Encounter for other preprocedural examination | CPT/HCPCS: 74246 ==

== ENCOUNTER 2023-01-16 10:21 | Outpatient (REF) | payer BC, MEDICAID, SELFPAY ==
--- NOTE | ~2023-01-16 | US_ITS ---
EXAMINATION: US COMPLETE ABDOMEN WITH LIVER ELASTOGRAPHY CLINICAL INFORMATION: Morbid obesity. COMPARISON: None available. TECHNIQUE: Real-time imaging of the abdominal viscera. Noninvasive ultrasound liver fibrosis assessment is performed using Wendy ElastPQ point quantification shear wave elastography (2D-SWE) with a C5-2 MHz transducer. Multiple elastography samples are obtained. FINDINGS: PANCREAS: Normal. The visualized pancreatic head and body are normal in appearance. The remainder of the pancreas is obscured from visualization by the overlying bowel gas. ABDOMINAL AORTA: The proximal, middle, and distal aortic segments are normal in caliber. INFERIOR VENA CAVA: Visualized portions are normal. LIVER: Normal. The liver demonstrates normal size, contour and echogenicity. No focal lesion or intrahepatic biliary duct dilatation. The right lobe measures 19.0 cm in length. The left lobe measures 13.1 cm in length. Portal flow is towards the liver (hepatopetal). Shear wave liver elastography median stiffness is 1.43 m/s (reference: normal median stiffness is 1.3 m/s or less). IQR/median stiffness to assess sampling precision is 0.27 (reference: good quality data set is IQR/median stiffness of 0.15 or less). GALLBLADDER: Normal. The gallbladder is physiologically distended without evidence of stones, sludge, polyps, wall thickening or pericholecystic fluid. COMMON BILE DUCT: Normal in caliber measuring 0.3 cm in diameter. RIGHT KIDNEY: Normal. No hydronephrosis. No renal calculi or focal parenchymal lesions. The kidney measures 10.7 cm in maximum dimension. LEFT KIDNEY: Normal. No hydronephrosis. No renal calculi or focal parenchymal lesions. The kidney measures 11.6 cm in maximum dimension. SPLEEN: Normal. The spleen measures 10.5 cm in maximum dimension. FREE FLUID: None. US/US abdomen comp w elastography IMPRESSION: 1. There is hepatomegaly. 2. There is generalized increase in hepatic echotexture, consistent with fatty infiltration or hepatocellular disease. Please correlate clinically. No focal hepatic mass or intrahepatic biliary dilatation is seen. 3. Liver elastography: Although measurements appear to rule out compensated advanced chronic liver disease, there is statistical variability of the sampling which decreases accuracy. REFERENCE: Society of Radiologists in Ultrasound Liver Stiffness Thresholds (2020): LIVER STIFFNESS THRESHOLDS: *Liver Stiffness equal or less than 1.3 m/s: High probability of being normal. *Liver Stiffness less than 1.7 m/s: In the absence of other known clinical signs, rules out compensated advanced chronic liver disease. *Liver Stiffness 1.7-2.1 m/s: Suggestive of compensated advanced chronic liver disease but need further test for confirmation. *Liver Stiffness over 2.1 m/s: Rules in compensated advanced chronic liver disease. *Liver Stiffness over 2.4 m/s: Suggestive of clinically significant portal hypertension. QUALITY OF DATA SET: *IQR/Median value equal or less than 0.15 implies a quality data set. *IQR/Median value over 0.15 implies a poor quality data set. SIGNIFICANT CHANGE FROM PRIOR EXAM: Significant change if liver stiffness measurement is 10% or greater from prior exam. OTHER CONSIDERATIONS: The stage of liver fibrosis may be overestimated in the setting of acute hepatitis, liver inflammation, elevated liver function tests, hepatic vascular congestion, obstructive cholestasis, non-fasting state, and infiltrative diseases such as amyloidosis and lymphoma. In some patients with NAFLD, the liver stiffness thresholds for compensated advanced chronic liver disease may be lower. In causes other than viral hepatitis and NAFLD, liver stiffness thresholds are not well established.
== END 2023-01-16 10:22 | disposition home or self-care (01) ==
LOC: HO.US 10:21
PROVIDERS: PCP Registered Nurse; Visit Provider Surgery
DX: E66.01 Morbid (severe) obesity due to excess calories (principal); J45.909 Unspecified asthma, uncomplicated
CPT/HCPCS: 76705; 76981

== ENCOUNTER 2024-09-24 17:46 | Outpatient (REF) | payer BC, SELFPAY ==
--- NOTE | ~2024-09-24 | MR_ITS ---
CLINICAL HISTORY: HISTORY OF MIGRAINES MR orbits with and without gadolinium Comparison: None provided Findings: Orbital structures are within normal limits. Optic nerve in the extraocular muscles are unremarkable. Complete opacification of the left maxillary sinus and moderate opacification of the right maxillary sinus. No focal bone lesion. IMPRESSION: Orbital structures are within normal limits. Complete opacification of left maxillary sinus and moderate opacification of right maxillary sinus likely related to mucous retention cysts This document has been electronically signed by: Yoanna Ramirez MD on 09/24/2024 20:00:58
--- NOTE | ~2024-09-24 | MR_ITS ---
CLINICAL HISTORY: history of migraines MR Brain with and without gadolinium Comparison: None provided Findings: No restricted diffusion. No intra-axial mass or hemorrhage. No midline shift. No hydrocephalus. Vascular flow voids are intact. Few scattered foci of T2/FLAIR hyperintensities within the right frontal central semiovale is seen. Orbital contents are unremarkable. The sinuses and mastoid air cells are clear. No focal bone lesion. IMPRESSION: No acute findings. Few scattered foci of T2/FLAIR hyperintensities within the right frontal central semiovale are nonspecific in this age group and may represent changes related to migraine headaches. This document has been electronically signed by: Yoanna Ramirez MD on 09/24/2024 20:13:44
--- OUTSIDE RECORDS SUMMARY | 2024-09-24 17:53 | XMS_ITS | Clinical Summary ---
Author Organization [facility] Address [address] [place] [address] Care Team Providers Care Fish Rod Maker Name Role Phone Unavailable Primary Care Provider Unavailabl e Immunizations Name Administration Dates Next Due Covid-19 (Moderna 12+) 100mcg/0.5mL dosage 03/22,02/23/2020 Social History Tobacco Use Types Packs/Day Years Used Date Smoking Tobacco: Never Assessed Sex and Gender Information Value Date Recorded Sex Assigned at Female 02/23/2020 1:30 PM EST Gender Identity Not on file Sexual Orientation Not on file Plan of Treatment Health Maintenance Due Date Last Done Comments Hepatitis B Vaccines (1 of 3 - 3-dose series) 1994 Hepatitis C Screening 1994 Depression Screening 2006 Preventative Health Evaluation 2012 Cervical Cancer Screening (Pap Smear) 04/18/2015 COVID-19 Vaccine ( season) 2023 03/22/2020, 02/23/2020 Influenza Vaccine (#1) 2024 02/06/2013 DTap / Tdap / Td (8 - Td or Tdap) 06/16/2027 06/15/2017, 08/29/2006, 05/16/1999, Additional history exists Pneumococcal Vaccine Aged Out 03/06/2014 No long er eligible based on patient's age to complete this topic RSV Ped < 20 months Aged Out No longe r eligible based on patient's age to complete this topic Insurance Payer Benefit Plan / Group Subscriber ID Effective Dates Phone Address [facility] [id number] 2020-John henson [address] [place] [address] HMO SHONDA ZUNIGA [id number]
--- OUTSIDE RECORDS SUMMARY | 2024-09-24 17:53 | XMS_ITS | Clinical Summary ---
Author Organization [facility] Address [email or web address] [facility] [address] [place] [phone] Phone Care Team Providers Care Director Of Corporate Communications Name Role Phone AlonsojesseCorine Mcintyre Kacy DO Primary Car e Provider Allergies Active Allergy Reactions Criticality Noted Date Comments Amoxicillin Rash Low 10/05/2017 Doxycycline Calcium Rash Low 10/05/2017 Penicillins Rash Low 10/05/2017 Medications albuterol 90 mcg/actuation inhaler Inhale 2 puffs into the lungs every 6 (six) hours as needed for wheezing. Active therapeutic multivitamin tablet Take 1 tablet by mouth daily. Active metFORMIN (GLUCOPHAGE-XR) 500 MG 24 hr tabletIndications :Polycystic ovaries Take 1 tablet (500 mg total) by mouth daily with dinner. 90 tablet 3 03/15/2020 Active Active Problems Problem Noted Date Diagnosed Date Polycystic ovaries 10/19/2017 Assessment & Plan (03/15/2020 10:12 AM EST): At this point she will continue Metformin extended release 500 mg daily. I will give her a follow-up appointment in 6 months time. If she has not conceived by then then I can refer to reproductive endocrinology. She obtained comprehensive and hemoglobin A1c prior to the follow-up visit. Assessment & Plan (08/11/2019 10:17 AM EDT): This a patient with PCOS who we restarted metformin extended release 500 mg. Unfortunately she is not menstruating properly but she just resume metformin and maybe this will help. She is currently not on hormonal contraceptives. He is using other methods. She does not want to have children in the future. Does have mild hirsutism for which she plucks does not want spironolactone. Assessment & Plan (04/25/2019 11:26 AM EDT): Since the patient had gestational diabetes I think it is worthwhile for her to do a glucose tolerance test and a hemoglobin A1c. She is not anemic so I will not bother doing a CBC. I asked her to please check with the lab downstairs as to where she can get her glucose tolerance test done is possible that she can come to the office downstairs. I did prescribe metformin extended release 500 mg daily but I asked her not to take the medication onto the hemoglobin A1c and the glucose tolerance test have been completed. Assessment & Plan (01/25/2018 12:44 PM EST): The patient has PCO S and is currently on metformin extended release 500 mg she is currently 16 weeks . She is doing well. However she does have some low glucose in the morning in the 60s range but technically I should not say that they are low but they in the low normal reference range. If her glucose levels decreased into the 50s range then I would think that she should discontinue metformin. However 1 of the things that she can do to prevent morning headaches is to have a small snack in the evening such as cheese or nuts this may help with fasting blood glucose levels. I will have her return for follow-up in 6 months time. Assessment & Plan (10/19/2017 10:10 AM EDT): As stated in the HPI the only biochemical evidence that I have for polycystic ovarian syndrome is hyperinsulinemia granted testosterone levels are still pending. However she has a strong case based on her history including obesity irregular menstruation, acne cystic ovaries and hirsutism that she has PCOS. She ruled out for congenital adrenal hyperplasia. Cortisol levels are not elevated and I will not do dexamethasone suppression test since her cortisol levels have not been elevated. I can state that the patient has polycystic ovarian syndrome as a diagnosis of exclusion. At this point I will treat her with metformin extended release 500 mg daily. She would like to follow with reproductive endocrinology and she would like to see Dr. Ayush Garcia who apparently will be established at [facility] in the near future. Nontoxic uninodular goiter 10/19/2017 Assessment & Plan (03/15/2020 10:04 AM EST): She has a nontoxic uninodular goiter which has been biopsied found to be benign. She is due for repeat ultrasound in 3 years (07/27/2022) then 5 years that will be a total of 11 years follow-up. Any growth of 30% or more per year will require repeat biopsy. Assessment & Plan (08/11/2019 10:17 AM EDT): He has a nontoxic uninodular goiter which has been biopsied found to be benign. She is due for repeat ultrasound in 3 years then 5 years that will be a total of 11 years follow-up. Any growth of 30% or more per year will require repeat biopsy. Assessment & Plan (04/25/2019 11:25 AM EDT): The patient also has a uninodular goiter in which the nodule was biopsy and found to be benign. She had signed for release of the records but I never got them. So at this point and just can request an ultrasound of the thyroid gland for monitoring. Unfortunately I do not know what the size of the nodule was and that is also very important to see if there is been any growth. Assessment & Plan (01/25/2018 12:44 PM EST): The patient has to complete some paperwork or release of medical information in order to get her ultrasound reports. We can deal with this situation later. I think that she is somewhat consumed with her at the present time. Assessment & Plan (10/19/2017 10:11 AM EDT): The patient has a thyroid nodule which apparently has been biopsied. I have not seen the ultrasound report and all the size of the nodule. I did check TSH and the patient is chemically euthyroid. I also check TPO antibodies which are in the normal reference range indicating that the patient does not have Betsy's thyroiditis at least based on this antibody. The patient will try to get ultrasound records faxed to me for future reference. Family History Medical History Relation Comments Diabetes Father Hyperlipidemia Father Hypertension Father Polycystic ovary syndrome Maternal Aunt Asthma Maternal Grandfather Cancer Maternal Grandmother Anxiety disorder Mother Depression Mother Coronary artery disease Paternal Grandfather Bipolar disorder Paternal Grandmother Anxiety disorder Sister Depression Sister Relation Status Comments Father Alive Maternal Aunt Alive Maternal Grandfather Maternal Grandmother Mother Alive Paternal Grandfather Paternal Grandmother Sister Alive Social History Tobacco Use Types Packs/Day Years Used Date Smoking Tobacco: Never Smokeless Tobacco: Never Alcohol Use Standard Drinks/Week Comments No 0 (1 standard drink = 0.6 oz pur e alcohol) Education Answer Date Recorded Are you interested in more education? Not on abhi e 06/09/2022 Are you concerned about learning? Not on file 06/09/2022 No 06/09/2022 No 06/09/2022 Digital Access Answer Date Recorded No 07/08/2022 No 07/08/2022 No 07/08/2022 Reliable internet access at home? Not on file 07/08/2022 Device with a working camera? Not on file Comments No Sex and Gender Information Value Date Recorded Sex Assigned at Not on file Legal Sex Female 9:04 AM EDT Gender Identity Not on file Sexual Orientation Not on file Last Filed Vital Signs Vital Sign Reading Time Taken Comments Blood Pressure 120/70 08/11/2019 10:00 AM EDT Pulse 93 08/11/2019 10:00 AM EDT Temperature - - Respiratory Rate - - Oxygen Saturation 98% 08/11/2019 10: 00 AM EDT Inhaled Oxygen Concentration - - Weight 118.1 kg (260 lb 6.4 oz) 03/15/2020 9:37 AM EST Height 160.8 cm (5' 3.31 ) 03/15/2020 9:37 AM ES T Body Mass Index 45.68 03/15/2020 9:37 AM EST Plan of Treatment Health Maintenance Due Date Last Done Comments Adult Td,Tdap Booster 1994 DEPRESSION SCREENING 2006 HEPATITIS C SCREENING 2012 HIV ONE-TIME SCREENING (18-6 5 YEARS) 2012 PAP SMEAR 04/18/2015 SMOKING STATUS SCREENING (On ce After 26 Yrs) 2020 CREATININE LEVEL 06/07/2021 06/07/2020, 10/12/2017 COVID-19 VACCINE (2023-2 5 season) 2023 02/23/2020 HEPATITIS A VACCINES Aged Out No long er eligible based on patient's age to complete this topic HIB VACCINES Aged Out No longer eligi ble based on patient's age to complete this topic MENINGOCOCCAL VACCINES (ACWY) Aged Out No longer eligible based on patient's age to complete this topic MENINGOCOCCAL VACCINES (B) Aged Out N o longer eligible based on patient's age to complete this topic PNEUMOCOCCAL VACCINES (0-49 years) Aged Out No longer eligible b ased on patient's age to complete this topic Medical Devices Not on file Procedures Procedure Name Priority Date/Time Associated Diagnosis Comments COMPREHENSIVE METABOLIC PANEL Routine 06/07/2020 9:38 AM EDT Polycystic ovaries from Last 3 Months or Most Recently Relevant to Health Maintenance Results * Comprehensive metabolic panel (06/07/2020 9:38 AM EDT) SODIUM 138 133 - 146 mmol/L [facility] POTASSIUM 4.4 3.3 - 5.1 mmol/L [facility] CHLORIDE 104 96 - 108 mmol/L [facility] CO2 25 21 - 35 mmol/L [facility] BUN 15 6 - 19 mg/dL [facility] CREATININE 0.70 0.5 - 1.5 mg/dL [facility] GLUCOSE 81 70 - 99 mg/dL [facility] ALBUMIN 4.2 3.9 - 4.8 g/dL [facility] TOTAL PROTEIN 7.0 6.5 - 8.0 g/dL [facility] CALCIUM 8.9 8.4 - 10.3 mg/dL [facility] ALKALINE PHOSPHATASE 86 39 - 117 U/L [facility] TOTAL BILIRUBIN 0.5 0.0 - 1.2 mg/dL [facility] AST 17 0 - 37 U/L [facility] ALT 9 0 - 40 U/L [facility] GLOBULIN 2.8 1 - 4.8 g/dL [facility] EGFR 120 >59 mL/min/1.7 3m2 [facility] Comment:Estimated glomerular filtration rate calculated using the CKD-EPI equation. ANION GAP 13 10 - 20 mmol/L [facility] Blood 06/07/2020 9:38 AM EDT 06/07/2020 9:42 AM EDT Reinier Lira DO LAB BLOOD ORDERABLES Final Resul t Performing Organization Address City/State/[facility] Co de Phone Number [facility] [address] [place] [address] from Last 3 Months or Most Recently Relevant to Health Maintenance Insurance PPO [facility] PPO SHONDA ZUNIGA BLUE CROSS OUT OF STATE PPO SHONDA ZUNIGA [id number] BLUE CROSS OUT OF STATE PPO SHONDA ZUNIGA BLUE [place] OUT OF STATE [place] [address] [place] [address] OUT OF [facility] PPO BLUE [place] OUT OF STATE PPO BLUE [employer] OUT OF STATE PPO OUT [facility] PPO Care Teams Director Of Corporate Communications Relationship Specialty Start Date End Date Corine Dupont DO [address] [place] [address] PCP - General Internal Medicine 09/11/17 Additional Source Comments The information contained in this document represents components of the legal health record. It is not the complete legal health record.[facility]
== END 2024-09-24 17:47 | disposition home or self-care (01) ==
LOC: HO.MRI 17:46
PROVIDERS: PCP Nurse Practitioner Family; Visit Provider Nurse Practitioner Family
DX: G43.909 Migraine, unspecified, not intractable, without status migrainosus (principal)
CPT/HCPCS: 70543; 70553; A9585

== ENCOUNTER → 2024-09-24 18:09 | Outpatient (BNV) | payer BC, SELFPAY | PROVIDERS: PCP Nurse Practitioner Family; Visit Provider Student in an Organized Health Care Education/Training Program | DX: G43.919 Migraine, unspecified, intractable, without status migrainosus (principal); J32.0 Chronic maxillary sinusitis | CPT/HCPCS: 70543; 70553 ==

== ENCOUNTER 2024-12-23 11:54 | Outpatient (AMB) | payer BC, SELFPAY ==
--- NOTE | 2024-12-23 12:08 | A.OFFVIS_ITS ---
Intake Visit Reasons: migraine Allergies amoxicillin (AMOXICILLIN) Allergy (Unknown, Verified 11/16/22 10:19) RASH/SWELLING, rash cephalexin Allergy (Unknown, Verified 11/16/22 10:19) rash doxycycline Allergy (Unknown, Verified 11/16/22 10:19) rash penicillin V Allergy (Unknown, Verified 11/16/22 10:19) rash Penicillins (PENICILLINS) Allergy (Unknown, Verified 11/16/22 10:19) RASH/SWELLING HPI Comments Details: The patient is a 29-year-old female presenting with chronic migraines. Migraine onset dates back to childhood, with marked escalation both in severity and in rate of occurrence. Currently, the patient endures 4 to 5 migraines weekly, each lasting from one day to a maximum of three days. Sometime he has tunnel vision with bad headaches. She used to have motion sickness is a child. Headache would described as severe. There were throbbing to pressure-like. There were associated with nausea light sensitivity sensitivity to touch sound fatigue and difficulty concentrating. She wanted to be alone and not moving when she had a headache. As far as triggers were concerned, headaches were triggered with alcohol air travel menstruation change in altitude stress sleep deprivation dehydration and weather changes. There was no history of head injury. Medication history comprises trials with multiple agents including furosemide, Qulipta, Ubrelvy, Rizatriptan, along with Fioricet and Sumatriptan, each providing varied efficacy. Topamax induced exhaustion, prompting discontinuation, while Nurtec current use results in decreased frequency but unchanged severity of migraines. Fioricet and Sumatriptan help control symptoms but are insufficient given prescription limitations relative to her episode frequency. The patient's familial disposition towards migraines is documented, with her father also affected. Additional information includes ADHD, under management, initially with Wellbutrin soon substituted by Vyvanse, absent any hypertensive history. [facility] Medical History (Updated 12/23/24 @ 12:15 by Julien Gaines MD) Asthma Gestational diabetes Anxiety Depression Morbid obesity Surgical History (Updated 11/16/22 @ 10:22 by Scotty Baez MD) History of tonsillectomy Review of Systems Narrative Constitutional:? Complain of fatigue. HEENT:?No headache, vision changes, hearing loss, nasal congestion, sore throat. Cardiovascular:?No chest pain, palpitations, orthopnea, PND, or leg swelling. Respiratory:?No cough, shortness of breath, wheezing, or hemoptysis. Gastrointestinal:?No nausea, vomiting, abdominal pain, diarrhea, or constipation. Genitourinary:?No dysuria, frequency, incontinence, or hematuria. Musculoskeletal:?No joint pain, stiffness, weakness, or muscle aches. Neurological:? Complain of headaches. Psychiatric:? Complain of anxiety and depression. Endocrine:?No heat/cold intolerance, polydipsia, polyuria, or hair/skin changes. Hematologic/Lymphatic:?No easy bruising, bleeding, or lymphadenopathy. Integumentary (Skin):? Complain of rash. Allergic/Immunologic:?No seasonal allergies, hives, or recurrent infections. Physical Exam Neuro Other: Mental Status: Alert and oriented to person, place, and time. Normal attention. Normal spontaneous speech, fluency, and comprehension. No obvious issues with mood and memory. Affect is appropriate. Cranial Nerves: CN II: Visual naranjo full to confrontation, visual acuity intact. CN III, IV, : Pupils equal, round, reactive to light and accommodation. Extraocular movements are normal. CN V: Facial sensation is normal. CN VII: Facial movements symmetrical. CN VIII: Hearing intact to bedside conversation is normal. CN IX, X: Palate elevates symmetrically. CN XI: Shoulder shrug and head turn symmetrical. CN XII: Tongue midline without atrophy or fasciculations. Funduscopy was normal. Motor: Bulk and tone normal in all extremities. No significant muscle weakness in arms and legs. No drift. Reflexes: Deep tendon reflexes 2+ and symmetric. Plantar response down-going bilaterally. Coordination: Llyrdv-ji-cfis and nscw-vu-epev testing normal. No dysmetria. Gait and Station: No obvious gait abnormality. No ataxia or instability. Extrapyramidal: Full facial expressions and blinking. No rigidity. Movements are appropriate with no tremor or abnormality. Speech: Normal; no dysarthria or tremor. Assessment & Plan Assessment & Plan (1) Migraine without aura: Comment: Meds tried for headaches: Topiramate, Sumatriptan, Rizatriptan, Fiorecet, Ubrelvy, Quilepta, Nurtec Code(s): G43.009 - Migraine without aura, not intractable, without status migrainosus Category: Medical Qualifiers: Status migrainosus presence: without status migrainosus Intractability: not intractable Qualified Code(s): G43.009 - Migraine without aura, not intractable, without status migrainosus Plan Impression: a: Migraine without aura b: Complicated migraine Rec: a: Continue Nurtec 75mg every other day b: Add Verapamil 40mg bid c: Try Naproxen 500mg one a day as needed 29 years old woman with mild controlled asthma, chronic depression, ADHD, PCOS with mild obesity, and chronic migraine without aura type of headaches, which sometime resulted in complex migraine. Examination was nonfocal and fundoscopy was normal. She was reassured and educated about migraine and its management. Detail of preventive and controlling type of migraine was discussed. She has tried some of the medicines and was introduced to other options. For now, my suggestion was to continue Nurtec and add small dose of verapamil to see if that would help. As far as abortive medicine is concerned, she would tried naproxen with food. Medications: New verapamil 40 mg PO BID 60 tabs 0RF naproxen 500 mg orally one a day as needed with food; 20 tabs 0RF Coding Level of Care Code New Pt Level 4 (56246) Global (92644) Diagnoses Migraine without aura and without status migrainosus, not intractable G43.009 Status migrainosus presence: without status migrainosus Intractability: not intractable Time Spent (min) 40
--- OUTSIDE RECORDS SUMMARY | 2024-12-23 13:55 | XMS_ITS | Clinical Summary ---
Author Organization [facility] Address [address] [place] [address] [place] [phone] Phone Care Team Providers Care Electric Repair Supervisor Name Role Phone AlonsojesseCorine Mcintyre Kacy DO [...] Garcia who apparently will be established at [facility] in the near future. Nontoxic [...] Yrs) 2020 CREATININE LEVEL 06/07/2021 06/07/2020, 10/12/2017 INFLUENZA VACCINE (#1) 2024 COVID-19 VACCINE (2 - 2024-2 6 season) 2024 02/23/2020 HEPATITIS A VACCINES Aged Out No long er eligible based on patient's age to complete this topic HIB VACCINES Aged Out No longer eligi ble based on patient's age to complete this topic IPV VACCINES Aged Out No longer eligi ble [...] Date/Time Associated Diagnosis Comments COMPREHENSIVE METABOLIC PANEL (CMP) Routine 06/07/2020 9:38 AM EDT Polycystic ovaries from Last 3 Months or Most Recently Relevant to Health Maintenance Results * Comprehensive metabolic panel (06/07/2020 9:38 AM EDT) SODIUM 138 133 - 146 mmol/L [facility] POTASSIUM 4.4 3.3 - 5.1 mmol/L [facility] CHLORIDE 104 96 - 108 mmol/L [facility] CO2 25 21 - 35 mmol/L [facility] BUN 15 6 - 19 mg/dL [facility] CREATININE 0.70 0.5 - 1.5 mg/dL [facility] GLUCOSE 81 70 - 99 mg/dL [facility] ALBUMIN 4.2 3.9 - 4.8 g/dL [facility] TOTAL PROTEIN 7.0 6.5 - 8.0 g/dL [facility] CALCIUM 8.9 8.4 - 10.3 mg/dL [facility] ALKALINE PHOSPHATASE 86 39 - 117 U/L [facility] TOTAL BILIRUBIN 0.5 0.0 - 1.2 mg/dL [facility] AST 17 0 - 37 U/L [facility] ALT 9 0 - 40 U/L [facility] GLOBULIN 2.8 1 - 4.8 g/dL [facility] EGFR 120 >59 mL/min/1.7 3m2 [facility] Comment:Estimated glomerular filtration rate calculated using the CKD-EPI equation. ANION GAP 13 10 - 20 mmol/L [facility] Blood 06/07/2020 9:38 AM EDT 06/07/2020 9:42 AM EDT Reinier Lira DO LAB BLOOD BKR ORDERABLES Final R esult [facility] [address] [place] [address] from Last 3 Months or Most Recently Relevant to Health Maintenance Insurance [facility] PPO [address] [place] [address] [facility] [place] [employer] OUT OF STATE PPO SHONDA ZUNIGA [facility] PPO [employer] [place] OUT OF STATE PPO BL[place] [address] [employer] OUT OF STATE PPO Kris [employer] OUT OF STATE [facility] [facility] [place] Kris [facility] OF [facility] PPO Care Teams Electric Repair Supervisor Relationship Specialty Start Date End Date Corine Dupont DO [address] [place] [id number] PCP - General Internal Medicine 09/11/17 Additional Source Comments The information contained in this document represents components of the legal health record. It is not the complete legal health record.[facility]
== END 2024-12-23 12:27 | disposition home or self-care (01) ==
LOC: HO.HSM 11:55
PROVIDERS: PCP Nurse Practitioner Family; Visit Provider Psychiatry & Neurology Neurology
DX: G43.009 Migraine without aura, not intractable, without status migrainosus (principal)
CPT/HCPCS: 99204